=== PATIENT | male | born 2005 | race African-American/Black ===

== ENCOUNTER 2025-03-17 20:15 | Emergency (ER) | payer MEDICAID, SELFPAY ==
[2025-03-17 20:16] VITALS: BP 188/106; PULSE 90; RESP 18; TEMP 36.9; O2SAT 98; BMI 43.4
[2025-03-17 21:04] LABS: Mucous, Urine 0 SEEN /hpf (<or=2+)
--- OUTSIDE RECORDS SUMMARY | 2025-03-17 21:11 | XMS RPT_ITS | CCD ---
Author Organization [facility] Inform ion Partnership [facility] Care Team Providers Care Blood Or Blood Bank Technician Name Role Phone Marcio Ruiz MD Primary Care Provider Marcio Ruiz MD Unavailable [phone] Omar Tomlin DO Primary Care Provider [phone] OMAR TOMLIN Primary Care Unavailable ALISSON ROSS Referring Unavailable ALISSON ROSS Attending Unavailable Omar Tomlin DO Primary Care Provider [phone] Medications Current Medications Medication Drug Class(es) Dates Sig (Normalized) Sig (Original) [id number] 200 actuat albuterol 0.09 mg/actuat metered dose inhaler (1 source) beta2-Adrenergic Agonist Start: 03-07-2019 take 2 puff(s) by mouth every four hours as needed for wheezing albuterol (PROVENTIL HFA) INHALATION HFA inhaler (VENTOLIN,PROAIR,PRO VENTIL) 90mcg Inhale 2 Puffs by mouth every 4 hours as needed for Wheezing or Shortness of Breath. May substitute any equivalent albuterol HFA MDI 2 Inhaler 3 03/07/2019 Active benzonatate 100 mg oral capsule (1 source) Non-narcotic Antitussive Start: 08-25-2024 End: 09-01-2024 take 1 capsule by mouth three times daily as needed for cough benzonatate (TESSALON PERLE) 100 mg capsule Indications: Viral illness Take 1 capsule by mouth three times a day as needed for cough for up to 7 days. 21 capsule 08/25/2024 09/01/2024 Active benzoyl peroxide 0.05 mg/mg topical gel (1 source) Start: 04-27-2018 benzoyl peroxide 5 % gel Apply topically daily. Apply thin layer to affected area each evening 90 g 3 04/27/2018 Active Methylphenidate (2 sources) Central Nervous System Stimulant METHYLPHENIDATE HCL (CONCERTA ORAL) Take by mouth. Active METHYLPHENIDATE HCL (CONCERTA ORAL) Take by mouth. 0 Active Comment on above: Take by mouth. predniSONE 20 mg oral tablet (1 source) Start: 08-25-2024 End: 08-28-2024 take 1 tablet by mouth twice daily predniSONE (DELTASONE) 20 mg tablet Indications: Viral illness Take 1 tablet by mouth two times a day for 3 days. 6 tablet 08/25/2024 08/28/2024 Active selenium sulfide 25 mg/ml medicated shampoo (1 source) Start: 04-01-2018 apply 118 mL topically once daily selenium sulfide 2.5 % topical suspension Use daily for 1 week, leave on for at least 10 minutes before rinsing off. To treat tinea versicolor 118 mL 1 04/01/2018 Active Problems Active Problems Problem Classification Problem Date Documented Date Episodic/Chronic Asthma (1 source) Intermittent asthma; Translations: [Mild intermittent asthma, uncomplicated] Onset: 10-18-2012 07-04-2016 Chronic Disorders usually diagnosed in infancy, childhood, or adolescence (1 source) Attention deficit hyperactivity disorder, predominantly inattentive type; Translations: [Other specified behavioral and emotional disorders with onset usually occurring in childhood and adolescence] Onset: 10-18-2012 07-10-2017 Chronic Immunizations and screening for infectious disease (2 sources) Patient encounter status; Translations: [Encounter for immunization] 02-09-2023 Episodic Other nutritional; endocrine; and metabolic disorders (1 source) Childhood obesity; Translations: [Morbid (severe) obesity due to excess calories] Onset: 11-07-2016 10-24-2018 Chronic Other nutritional; endocrine; and metabolic disorders (1 source) Morbid obesity; Translations: [Morbid (severe) obesity due to excess calories] 02-09-2023 Chronic Other skin disorders (1 source) Keloid scar; Translations: [Hypertrophic scar] 02-09-2023 Episodic Viral infection (1 source) Viral disease; Translations: [Viral infection, unspecified] 08-25-2024 Episodic Past or Other Problems Problem Classification Problem Date Documented Da te Episodic/Chronic Attention-deficit, conduct, and disruptive behavior disorders (1 source) Disruptive behavior disorder; Translations: [Conduct disorder, unspecified] Onset: 04-07-2011 Resolved: 07-04-2016 07-04-2016 Chronic Blindness and vision defects (1 source) Amblyopia of left eye; Translations: [Unspecified amblyopia, left eye] Onset: 03-12-2019 03-12-2019 Episodic Fracture of lower limb (1 source) Closed fracture of tibial tuberosity; Translations: [Displaced fracture of right tibial tuberosity, initial encounter for closed fracture] Onset: 05-21-2017 Resolved: 04-27-2018 04-27-2018 Episodic Other circulatory disease (1 source) Elevated blood-pressure reading without diagnosis of hypertension; Translations: [Elevated blood-pressure reading, without diagnosis of hypertension] Onset: 04-27-2018 04-27-2018 Episodic Other gastrointestinal disorders (1 source) Encopresis ; Translations: [Full incontinence of feces] Onset: 05-03-2008 Resolved: 05-07-2017 05-07-2017 Episodic Other nutritional; endocrine; and metabolic disorders (1 source) Increased body mass index; Translations: [Other symptoms and signs concerning food and fluid intake] Onset: 10-24-2015 Resolved: 12-18-2016 12-18-2016 Episodic Other nutritional; endocrine; and metabolic disorders (7 sources) Childhood obesity; Translations: [Body mass index (BMI) pediatric, greater than or equal to 95th percentile for age] Onset: 05-31-2020 02-09-2023 Episodic Other skin disorders (1 source) Acne; Translations: [Acne, unspecified] Onset: 07-10-2017 07-10-2017 Episodic Results Test Name Value Interpretation Reference Range Facil ity MIRTAOVon 02-09-2023 CNOV Office Visit (PEDSBD ) RINA MENDOZA ([id number]) 3 M Date Time Provider Department 02/09/23 9:00 AM ALISSON ROSS PEDSBD During your visit today, we recorded the following information about you: Blood pressure Weight Height 134/83 135.4 kg 1.77 m Alissonjeremiah EvangelistaRAND alatorre 02/09/2023 8:06 PM Addendum 5 to Go!TM Healthy Kids Inside AND Out 5 Eat FIVE fruits and veggies a day 4 Give and get FOUR compliments a day 3 Consume THREE calcium products a day 2 Limit media time to TWO hours a day 1 Get at least ONE hour of exercise a day 0 Consume ZERO sugar-sweetened drinks Go! Be healthy, inside and out! www.[email or web address] g/5toGo Adolescent to Adult Transition Program [facility] cares about helping you and each of our adolescents and young adults make a smooth transition to adult care. If your current doctor is a report manager, we will work with you to decide the correct age for moving your care to a doctor or other provider who takes care of adults. We suggest that this move take place before age 22. Our office policy is to prepare you to move to a doctor or other provider who takes care of adults. This includes helping you find a doctor or other provider, sending medical records, and talking about any special needs with the new doctor or other provider. If your current doctor is in family medicine, [facility] will prepare you and your family for the transition to being an adult patient. You will be able to make your own healthcare decisions and will have an adult care team that meets your personal healthcare needs. At age 18, by law, we need your agreement to discuss personal health information with your family. We understand and respect that you may want to include your family in healthcare choices and will partner with you on how and when to include your family in decisions. We will make sure you know what changes to expect. We will also strive to make sure that all care team providers know your needs. We will help you find community resources and specialty care, if needed. Having your information before you come for the first time helps us be sure we do not miss any details. If joining our practice from outside [facility], we will help you request your medical record from past doctor(s) before your first visit. We will make every effort to work with your past providers to ensure a smooth transition and experience. We are always here for you. If you have any questions or concerns, please contact your primary care team or e-mail [email or web address] Got Transition ? is the federally funded national resource center on health care transition (HCT). Its aim is to improve transition from pediatric to adult health care through the use of evidence-driven strategies for health manager care, youth, young adults, and their families. www.gottransition.org https://gottransition. org/resource/?hct-fami ly-toolkit 5 to Go!TM Healthy Kids Inside AND Out 5 Eat FIVE fruits and veggies a day 4 Give and get FOUR compliments a day 3 Consume THREE calcium products a day 2 Limit media time to TWO hours a day 1 Get at least ONE hour of exercise a day 0 Consume ZERO sugar-sweetened drinks Go! Be healthy, inside and out! www.[email or web address].or g/5toGo Alisson Ross APRN.CNP 02/10/2023 1:05 PM Signed WELL VISIT PEDIATRIC 18+YRS OLD Rina is a 17 year old who presents today with his mother for well exam. SUBJECTIVE CONCERNS: Cramping in legs with football- drinks Over 1 gallon of water a day. Participates in football 5-6 hours a day. Discussed replacing electrolytes, magnesium with calcium supplement HISTORY ACTIVE PROBLEM LIST Body Mass Index Equal to Or Greater Than 95th Percentile for Age in Pediatric Patient - 05/31/2020 PAST MEDICAL HISTORY Diagnosis Date Attention deficit hyperactivity disorder PAST SURGICAL HISTORY Procedure Laterality Date CIRCUMCISION NONE ALLERGIES No Known Allergies Medications: METHYLPHENIDATE HCL (CONCERTA ORAL) Take by mouth. FAMILY HISTORY Problem Relation Age of Onset Hypertension Maternal Grandmother Diabetes Maternal Grandmother Social History Social History Narrative Not on file Smoking Exposure: Do you spend a significant amount of time with anyone who smokes? No School: Entering 12th grade.plans for after high school. Looking at colleges - will play football for college and undeclared what he will study at this time No academic or school related concerns No behavioral concerns Any concerns regarding peer interactions? No Physical Activity: more than 1 hour of physical activity per day football and conditioning, weight lifting Recreational Screen Time totaling less than 2 hours of screen time per day. Fainting, dizziness, significant shortness of breath or chest pain with sports or (more content not included)... Normal [facility] Vital Signs Date Time Vital Sign Value Performing Clinician Faci darci 08-25-2024 10:51-0500 Body temperature 99.3 [degF] Dutch Mckeon PA-C Work Phone: [facility] 08-25-2024 10:51-0500 Body weight 141.4 kg Dutch Clutter PA-C Work Phone: [facility] 08-25-2024 10:51-0500 Diastolic blood pressure 100 mm[Hg] Dutch Clutter PA-C Work Phone: [facility] 08-25-2024 10:51-0500 Heart rate 100 /min Dutch Clutter PA-C Work Phone: [facility] 08-25-2024 10:51-0500 Respiratory rate 16 /min Dutch Clutter PA-C Work Phone: [facility] 08-25-2024 10:51-0500 SaO2% (BldA) [Mass fraction] 98 % Dutch Clutter PA-C Work Phone: [facility] 08-25-2024 10:51-0500 Systolic blood pressure 145 mm[Hg] Dutch Clutter PA-C Work Phone: [facility] 02-09-2023 09:14-0400 Body height 177 cm Alissonjeremiah Ross PIPE CLEANING MACHINE OPERATOR.PIT SUPERVISOR Work Phone: [facility] 02-09-2023 09:14-0400 Body mass index (BMI) [Percentile] Per age and sex 99.77 % Alisson Bladen PIPE CLEANING MACHINE OPERATOR.PIT SUPERVISOR Work Phone: [facility] 02-09-2023 09:14-0400 Body weight 135.44 kg Alisson Bladen PIPE CLEANING MACHINE OPERATOR.PIT SUPERVISOR Work Phone: [facility] 02-09-2023 09:14-0400 Diastolic blood pressure 83 mm[Hg] Alisson Bladen PIPE CLEANING MACHINE OPERATOR.PIT SUPERVISOR Work Phone: [facility] 02-09-2023 09:14-0400 Systolic blood pressure 134 mm[Hg] Alisson Bladen PIPE CLEANING MACHINE OPERATOR.PIT SUPERVISOR Work Phone: [facility] Encounters Encounter Date Encounter Type Care Provider Facility Start: 08-25-2024 End: 08-25-2024 Office outpatient new 30 minutes Dutch Clutter PA-C Work Phone: [facility] Comment on above: Viral illness (Prima ry Dx); Blood pressure check Start: 08-25-2024 End: 08-25-2024 Patient encounter status Dutch Mike REDDY Work Phone: [facility] Start: 02-09-2023 End: 02-09-2023 [facility] Facility:[facility] Start: 02-09-2023 Encounter for genera l adult medical examination without abnormal findings ALISSON ROSS [facility] Start: 02-09-2023 End: 02-09-2023 Patient encounter procedure Alisson Ross APRN.CNP Work Phone: [facility] Comment on above: Encounter for genera l adult medical examination without abnormal findings (Primary Dx); Encounter for immunization; Keloid; BMI (body mass index), pediatric, greater than 99% for age; Special screening examination for viral disease; Morbid childhood obesity with BMI greater than 99th percentile for age (HCC) Start: 02-09-2023 End: 02-09-2023 Patient encounter status Alisson Ross APRN.CNP Work Phone: [facility] Work Phone: Start: 09-15-2021 Letter encounter Marcio Ruiz MD Work Phone: [facility] Procedures Date Procedure Procedure Detail Performing Clinician Start: 02-09-2023 MENINGOCOCCAL B VACC INE (BEXSERO) Alisson Ross APRN.CNP Work Phone: Start: 03-07-2019 Lipid 1996 panel - S good or Plasma Marcio Ruiz MD Work Phone: Plan of Treatment Date Care Activity Detail Author Start: 11-06-2026 Tetanus,Diptheria,Pe rtussi s Vaccine (7 - Td or Tdap) Tetanus,Diptheria,Pert ussis Vaccine (7 - Td or Tdap) [facility] Start: 11-06-2026 Urine microalbumin profile [facility] Start: 04-02-2024 Covid-19 Vaccine ( season) Covid-19 Vaccine ( season) [facility] Start: 04-02-2024 Influenza vaccination Influenza Vacc ine (#1) [facility] Start: 04-02-2023 Influenza vaccination INFLUENZA (#1) [facility] Start: 03-09-2023 Meningococcal B Vacc ine: Consider Based On Risk (2 of 2 - Risk Bexsero 2-dose series) Meningococcal B Vaccine: Consider Based On Risk (2 of 2 - Risk Bexsero 2-dose series) [facility] Start: 03-09-2023 MENINGOCOCCAL B: Con computer consultant based on risk (2 of 2 - Risk Bexsero 2-dose series) MENINGOCOCCAL B: Consider based on risk (2 of 2 - Risk Bexsero 2-dose series) [facility] Start: 02-09-2023 End: 04-11-2023 Alanine aminotransferase [Enzymatic activity/volume] in Serum or Plasma ALT/SGPT Lab Routine BMI (body mass index), pediatric, greater than 99% for age Morbid childhood obesity with BMI greater than 99th percentile for age (HCC) Expected: 02/09/2023, Expires: 04/11/2023 [facility] Work Phone: Comment on above: Expected: 02/09/2023 , Expires: 04/11/2023 Start: 02-09-2023 End: 04-11-2023 Aspartate aminotransferase [Enzymatic activity/volume] in Serum or Plasma AST/SGOT BLD Lab Routine BMI (body mass index), pediatric, greater than 99% for age Morbid childhood obesity with BMI greater than 99th percentile for age (HCC) Expected: 02/09/2023, Expires: 04/11/2023 [facility] Work Phone: Comment on above: Expected: 02/09/2023 , Expires: 04/11/2023 Start: 02-09-2023 End: 04-11-2023 Fasting glucose [Mass/volume] in Serum or Plasma GLUCOSE FASTING BLD Lab Routine BMI (body mass index), pediatric, greater than 99% for age Morbid childhood obesity with BMI greater than 99th percentile for age (HCC) Expected: 02/09/2023, Expires: 04/11/2023 [facility] Work Phone: Comment on above: Expected: 02/09/2023 , Expires: 04/11/2023 Start: 02-09-2023 End: 04-11-2023 Hepatitis C virus Ab [Presence] in Serum HEPATITIS C ANTIBODY IA WITH CONFIRMATION Lab Routine Special screening examination for viral disease Expected: 02/09/2023, Expires: 04/11/2023 [facility] Work Phone: Comment on above: Expected: 02/09/2023 , Expires: 04/11/2023 Start: 02-09-2023 End: 04-11-2023 Lipid 1996 panel - Serum or Plasma LIPID PANEL BASIC Lab Routine BMI (body mass index), pediatric, greater than 99% for age Morbid childhood obesity with BMI greater than 99th percentile for age (HCC) Expected: 02/09/2023, Expires: 04/11/2023 [facility] Work Phone: Comment on above: Expected: 02/09/2023 , Expires: 04/11/2023 Start: 08-02-2022 DEPRESSION ASSESSMENT DEPRESSION ASS [facility] Start: 2022 Anxiety Screening Anxiety Screening [facility] Start: 2022 Depression Screening Depression Scre [facility] Start: 2022 HEPATITIS C SCREENING HEPATITIS C [facility] Start: 2022 Hepatitis C screening Hepatitis C [facility] Start: 2022 HIV SCREENING HIV SCREENING [facility] Start: 2022 HIV screening HIV Screening [facility] Start: 05-31-2022 Diabetes Screening Diabetes Screenin g [facility] Start: 12-10-2021 COVID-19 VACCINE (4 - Pfizer series) COVID-19 VACCINE (4 - Pfizer series) [facility] Start: 05-28-2021 COVID-19 Vaccine (3 - Booster for Pfizer series) COVID-19 Vaccine (3 - Booster for Pfizer series) [facility] Start: 03-07-2021 Fasting lipid profile Lipid Screenin g [facility] Start: 03-07-2021 Liver function tests - general ALT/AST Screening [facility] Start: 03-02-2021 Influenza vaccination Influenza Vacc ine (#1) [facility] Start: 2020 Meningococcal B (Bexsero,OMV) Vaccine (Optional,16-23 years) (#1) Meningococcal B (Bexsero,OMV) Vaccine (Optional,16-23 years) (#1) [facility] Start: 2019 HIV screening HIV Test [facility] Start: 2019 Vision Test (15-17 yrs,once) Vision Test (15-17 yrs,once) [facility] Start: 04-27-2019 Well child visit, 13 years WEL L FUR FARMER (3-17 YRS,YEARLY) [facility] Start: 2018 PEDS TO ADULT TRANSI TION ANNUAL ASSESSMENT PEDS TO ADULT TRANSITION ANNUAL ASSESSMENT [facility] COVID & INFLUENZA A/ B & RSV PCR, ROUTINE COVID & INFLUENZA A/B & RSV PCR, ROUTINE Microbiology Routine Viral illness Ordered: 08/25/2024 [facility] Work Phone: Comment on above: Ordered: 08/25/2024 Immunizations Immunization Date Immunization Notes Care Provider Rao gibson 02-09-2023 meningococcal B vacc ine, recombinant, OMV, adjuvanted Alisson Cody ANTOINE.PIT SUPERVISOR Work Phone: [facility] 10-15-2021 COVID-19 original vaccine, age 12+ yr, monovalent (PFIZER-BIONTECH - RYAN TOP) Alisson Ross PIPE CLEANING MACHINE OPERATOR.[facility] Work Phone: [facility] 10-15-2021 influenza, injectabl e, quadrivalent, preservative free Alisson Cody PIPE CLEANING MACHINE OPERATOR.PIT SUPERVISOR Work Phone: [facility] 10-15-2021 influenza virus vacc ine, unspecified formulation Dutch Mckeon PA-C Work Phone: [facility] 12-05-2020 Pfizer SARS-COV-2 (COVID-19) vaccine, age 12+ yrs, mRNA, spike protein, LNP, preservative free, 30 mcg/0.3mL dose ([id number]) Marcio Ruiz MD Work Phone: [facility] 05-31-2020 influenza, injectabl e, quadrivalent, contains preservative Marcio Ruiz MD Work Phone: [facility] 05-31-2020 meningococcal polysaccharide (groups A, C, Y and W-135) diphtheria toxoid conjugate vaccine (MCV4P) Marcio Ruiz MD Work Phone: [facility] 05-31-2020 influenza virus vacc ine, unspecified formulation Marcio Ruiz MD Work Phone: [facility] 03-07-2019 hepatitis A vaccine, pediatric/adolescent dosage, 2 dose schedule Marcio Ruiz MD Work Phone: [facility] 04-27-2018 hepatitis A vaccine, pediatric/adolescent dosage, 2 dose schedule Marcio Ruiz MD Work Phone: [facility] 04-27-2018 Human Papillomavirus 9-valent vaccine Marcio Ruiz MD Work Phone: [facility] 04-27-2018 influenza, injectabl e, quadrivalent, preservative free Marcio Ruiz MD Work Phone: [facility] 04-27-2018 influenza, seasonal, injectable Alisson Bladen PIPE CLEANING MACHINE OPERATOR.PIT SUPERVISOR Work Phone: [facility] 05-07-2017 influenza, injectabl e, quadrivalent, preservative free Marcio Ruiz MD Work Phone: [facility] 05-07-2017 influenza, seasonal, injectable Alisson Bladen PIPE CLEANING MACHINE OPERATOR.PIT SUPERVISOR Work Phone: [facility] 11-06-2016 Human Papillomavirus 9-valent vaccine Marcio Ruiz MD Work Phone: [facility] 11-06-2016 meningococcal oligosaccharide (groups A, C, Y and W-135) diphtheria toxoid conjugate vaccine (MCV4O) Marcio Ruiz MD Work Phone: [facility] 11-06-2016 meningococcal polysaccharide (groups A, C, Y and W-135) diphtheria toxoid conjugate vaccine (MCV4P) Alisson Ross APRN.PIT SUPERVISOR Work Phone: [facility] 11-06-2016 tetanus toxoid, redu obed diphtheria toxoid, and acellular pertussis vaccine, adsorbed Marcio Ruiz MD Work Phone: [facility] 04-19-2013 influenza, injectabl e, quadrivalent, preservative free Marcio Ruiz MD Work Phone: [facility] 04-19-2012 influenza, injectabl e, quadrivalent, preservative free Marcio Ruiz MD Work Phone: [facility] 04-19-2012 influenza, seasonal, injectable Alisson Bladen PIPE CLEANING MACHINE OPERATOR.PIT SUPERVISOR Work Phone: [facility] 04-19-2012 influenza, seasonal, injectable, preservative free Alisson Cody PIPE CLEANING MACHINE OPERATOR.PIT SUPERVISOR Work Phone: [facility] 03-11-2009 diphtheria, tetanus toxoids and acellular pertussis vaccine Marcio Ruiz MD Work Phone: [facility] 03-11-2009 diphtheria, tetanus toxoids and acellular pertussis vaccine, 5 pertussis antigens Alisson Bladen PIPE CLEANING MACHINE OPERATOR.PIT SUPERVISOR Work Phone: [facility] 03-11-2009 measles, mumps and rubella virus vaccine Marcio Ruiz MD Work Phone: [facility] 03-11-2009 poliovirus vaccine, inactivated Marcio Ruiz MD Work Phone: [facility] 03-11-2009 varicella virus vaccine Oni Ruiz MD Work Phone: [facility] 10-16-2005 diphtheria, tetanus toxoids and acellular pertussis vaccine Marcio Ruiz MD Work Phone: [facility] 10-16-2005 diphtheria, tetanus toxoids and acellular pertussis vaccine, 5 pertussis antigens Alisson Bladen PIPE CLEANING MACHINE OPERATOR.PIT SUPERVISOR Work Phone: [facility] 10-16-2005 haemophilus influenz ae type b vaccine, HbOC conjugate Alisson Bladen PIPE CLEANING MACHINE OPERATOR.PIT SUPERVISOR Work Phone: [facility] 10-16-2005 haemophilus influenz ae type b vaccine, PRP-T conjugate Marcio Ruiz MD Work Phone: [facility] 10-16-2005 varicella virus vaccine Oni hew Joseph MD Work Phone: [facility] 07-21-2005 haemophilus influenz ae type b vaccine, HbOC conjugate Alisson Bladen PIPE CLEANING MACHINE OPERATOR.[facility] Work Phone: [facility] 07-21-2005 pneumococcal conjuga te vaccine, 7 valent Marcio Ruiz MD Work Phone: [facility] 06-23-2005 influenza virus vacc ine, whole virus Marcio Ruiz MD Work Phone: [facility] 06-23-2005 influenza, seasonal, injectable Alisson Bladen PIPE CLEANING MACHINE OPERATOR.[facility] Work Phone: [facility] 06-23-2005 measles, mumps and rubella virus vaccine Marcio Ruiz MD Work Phone: [facility] 06-23-2005 pneumococcal conjuga te vaccine, 7 valent Marcio Ruiz MD Work Phone: [facility] [facility] 02-13-2005 diphtheria, tetanus toxoids and acellular pertussis vaccine Marcio Ruiz MD Work Phone: [facility] 02-13-2005 diphtheria, tetanus toxoids and acellular pertussis vaccine, 5 pertussis antigens Alisson Cody PIPE CLEANING MACHINE OPERATOR.[facility] Work Phone: [facility] 02-13-2005 haemophilus influenz ae type b vaccine, HbOC conjugate Alisson Bladen PIPE CLEANING MACHINE OPERATOR.[facility] Work Phone: [facility] 02-13-2005 haemophilus influenz ae type b vaccine, PRP-T conjugate Marcio Ruiz MD Work Phone: [facility] 02-13-2005 pneumococcal conjuga te vaccine, 7 valent Marcio Ruiz MD Work Phone: [facility] 02-13-2005 poliovirus vaccine, inactivated Marcio Ruiz MD Work Phone: [facility] 2004 diphtheria, tetanus toxoids and acellular pertussis vaccine Marcio Ruiz MD Work Phone: [facility] 2004 diphtheria, tetanus toxoids and acellular pertussis vaccine, 5 pertussis antigens Alisson Bladen PIPE CLEANING MACHINE OPERATOR.PIT SUPERVISOR Work Phone: [facility] 2004 haemophilus influenz ae type b vaccine, HbOC conjugate Alisson Bladen PIPE CLEANING MACHINE OPERATOR.[facility] Work Phone: [facility] 2004 haemophilus influenz ae type b vaccine, PRP-T conjugate Marcio Ruiz MD Work Phone: [facility] 2004 hepatitis B vaccine, pediatric or pediatric/adolescent dosage Marcio Ruiz MD Work Phone: [facility] 2004 pneumococcal conjuga te vaccine, 7 valent Marcio Ruiz MD Work Phone: [facility] 2004 poliovirus vaccine, inactivated Marcio Ruiz MD Work Phone: [facility] 2004 diphtheria, tetanus toxoids and acellular pertussis vaccine Marcio Ruiz MD Work Phone: [facility] Work Phone: 2004 diphtheria, tetanus toxoids and acellular pertussis vaccine, 5 pertussis antigens Alisson Cody PIPE CLEANING MACHINE OPERATOR.[facility] Work Phone: [facility] 2004 haemophilus influenz ae type b vaccine, HbOC conjugate Alisson Cody PIPE CLEANING MACHINE OPERATOR.[facility] Work Phone: [facility] 2004 haemophilus influenz ae type b vaccine, PRP-T conjugate Marcio Ruiz MD Work Phone: [facility] 2004 hepatitis B vaccine, pediatric or pediatric/adolescent dosage Marcio Ruiz MD Work Phone: [facility] 2004 pneumococcal conjuga te vaccine, 7 valent Marcio Ruiz MD Work Phone: [facility] 2004 poliovirus vaccine, inactivated Marcio Ruiz MD Work Phone: [facility] 2004 hepatitis B vaccine, pediatric or pediatric/adolescent dosage Marcio Ruiz MD Work Phone: [facility] Payers Date Payer Category Payer Medicaid [facility] [id number] 2023-Present [phone] [address] [place] [address] Medicaid [id number] 2018 Unknown SP/UNINSURED [facility] F-PAY [facility] 2018-Present [id number] Social History Date Type Detail Facility [facility]: [facility] Start: 03-12-2019 Alcohol intake Not Asked [facility] Start: 03-12-2019 End: 02-09-2023 Alcohol intake [facility] Start: 11-06-2016 Tobacco Comment non smoking househol d [facility] Start: 2004 Sex Assigned At Not on file [facility] Start: 02-09-2023 Tobacco use and exposure Smoke less tobacco non-user [facility] Start: 02-09-2023 End: 08-25-2024 Alcohol intake Current non-drinker of alcohol (finding) [facility] Start: 02-09-2023 End: 08-25-2024 Tobacco use panel [facility] National Score (1-10 0), lower number is lower risk 36 [facility] History of Present illness Narrative 08-25-2024 Dutch Mckeon PA-C - 08/25/2024 11:03 AM EST Note Date & Type Note Facility 08-25-2024 History of Presen t illness Narrative This note was created using RemoteRealityriter. Subjective Rina Mendoza is a 19 year old male. Patient is a 27-year-old male who complains of congestion and cough that he has been experiencing for the past 2 days. Patient reports a low-grade fever and denies chills or myalgia. Patient is a student at the [employer] and was seen in the school clinic prior to arrival this morning. Patient's blood pressure is noted to be elevated and he was sent to this facility for evaluation. Patient's blood pressure upon arrival was noted to be 145/100. Patient has no history of hypertension but does have a family history of same. Patient denies chest pain, palpitations, tightness or pressure and reports no dyspnea or shortness of breath. Patient has no history of asthma or COPD and does not smoke. Patient does weigh 311 pounds, however he exhibits an extremely high level of physical fitness and plays football at the [employer]. Cough Review of Systems HENT: Positive for congestion. Respiratory: Positive for cough. All other systems reviewed and are negative. Objective BP 145/100 Pulse 100 Temp 37.4 C (99.3 F) (Left Tympanic) Resp 16 Wt (!) 141.4 kg (311 lb 11.7 oz) SpO2 98% Physical Exam Vitals and nursing note reviewed. Constitutional: Appearance: Normal appearance. He is normal weight. HENT: Head: Normocephalic and atraumatic. Right Ear: Tympanic membrane, ear canal and external ear normal. Left Ear: Tympanic membrane, ear canal and external ear normal. Nose: Nose normal. Mouth/Throat: Mouth: Mucous membranes are moist. Pharynx: Oropharynx is clear. Eyes: Extraocular Movements: Extraocular movements intact. Conjunctiva/sclera: Conjunctivae normal. Pupils: Pupils are equal, round, and reactive to light. Cardiovascular: Rate and Rhythm: Normal rate and regular rhythm. Pulses: Normal pulses. Heart sounds: Normal heart sounds. No murmur heard. No friction rub. No gallop. Pulmonary: Effort: Pulmonary effort is normal. Breath sounds: Normal breath sounds. Musculoskeletal: General: Normal range of motion. Cervical back: Normal range of motion and neck supple. Skin: General: Skin is warm and dry. Capillary Refill: Capillary refill takes less than 2 seconds. Neurological: General: No focal deficit present. Mental Status: He is alert and oriented to person, place, and time. Psychiatric: Mood and Affect: Mood normal. Behavior: Behavior normal. Thought Content: Thought content normal. Judgment: Judgment normal. Assessment and Plan Unremarkable physical exam findings as noted above. Patient appears to be in a high degree of physical health and conditioning. Influenza A/B/SARS-CoV-2/RSV PCR was ordered and the patient was advised that results will be available tomorrow. Patient was provided with prescriptions for prednisone 20 mg and Tessalon 100 mg. Patient was strongly encouraged to obtain a blood pressure cuff at the drugstore when he obtains his prescription medication. Patient was instructed to measure his blood pressure at varying times of the day over the next 2 weeks and record the readings obtained. Patient was advised that if he continues to note elevated blood pressures he is to schedule an appointment with his primary care physician for further evaluation and management. Patient verbalizes excellent understanding of all of the above instructions. CLINICAL IMPRESSION: Viral Illness; Elevated Blood Pressure Reading ASSESSMENT/PLAN: 1. Viral illness - ICD9: 079.99, ICD10: B34.9 (primary diagnosis) - COVID & INFLUENZA A/B & RSV PCR, ROUTINE - PREDNISONE 20 MG TABLET - BENZONATATE 100 MG CAPSULE 2. Blood pressure check - ICD9: V81.1, ICD10: Z01.30 Dutch Mckeon PA-C documented in this encounter [facility] Progress note 02-09-2023 Note Date & Type Note Facility 02-09-2023 Note HNO ID: [id number] Author: Alisson Ross APRN.PIT SUPERVISOR Service: ? Author Type: Nurse Practitioner Type: Progress Notes Filed: 02/10/2023 1:05 PM Note Text: WELL VISIT PEDIATRIC 18+YRS OLD Rina is a 17 year old who presents today with his mother for well exam. SUBJECTIVE CONCERNS: Cramping in legs with football- drinks Over 1 gallon of water a day. Participates in football 5-6 hours a day. Discussed replacing electrolytes, magnesium with calcium supplement HISTORY ACTIVE PROBLEM LIST Body Mass Index Equal to Or Greater Than 95th Percentile for Age in Pediatric Patient - 05/31/2020 PAST MEDICAL HISTORY Diagnosis Date Attention deficit hyperactivity disorder PAST SURGICAL HISTORY Procedure Laterality Date CIRCUMCISION NONE ALLERGIES No Known Allergies Medications: METHYLPHENIDATE HCL (CONCERTA ORAL) Take by mouth. FAMILY HISTORY Problem Relation Age of Onset Hypertension Maternal Grandmother Diabetes Maternal Grandmother Social History Social History Narrative Not on file Smoking Exposure: Do you spend a significant amount of time with anyone who smokes? No School: Entering 12th grade.plans for after high school. Looking at colleges - will play football for college and undeclared what he will study at this time No academic or school related concerns No behavioral concerns Any concerns regarding peer interactions? No Physical Activity: more than 1 hour of physical activity per day football and conditioning, weight lifting Recreational Screen Time totaling less than 2 hours of screen time per day. Fainting, dizziness, significant shortness of breath or chest pain with sports or exercise: No History of concussion in the last year: No Safety: Reviewed seat belts, bike helmets, smoke detectors, and driving Diet: -Diet is well balanced and appropriate for age -Fruits and veggies are eaten with most meals -Regularly eats meals with family Snacks- peanut butter jelly Fruits daily not vegetables Elimination: no concerns, normal size and consistency Dental: dental care current Brushes 2 x daily Sleep: -no sleep concerns -naps during the day after football Vision: No vision concerns Hearing: No hearing concerns Growth: No growth concerns Substance use: none Sexual History: Attraction: female Sexually Active: No Screening tools reviewed and discussed with patient/[id number] and Social Determinants of Health. Please see Patient Entered Data. SDOH: Food Insecurity: Not on file Financial Resource Strain: Not on file Transportation Needs: Not on file Housing Stability: Not on file Discussed SDOH results with patient/family. SDOH needs identified: no concerns identified OBJECTIVE Physical Exam: BP 134/83 Ht 177 cm (5' 9.69) Wt 135.4 kg (298 lb 9.6 oz) BMI 43.23 kg/m? Blood pressure %francisco javier are not available for patients who are 18 years or older. >99 %ile (Z= 2.84) based on CDC (Boys, 2-20 Years) BMI-for-age based on BMI available as of 02/09/2023. Last BMI: Wt: 131.1 kg (289 lb 2 oz) (>99 %, Z= 3.03)* BMI: 42.58 kg/(m2) Last 4 Encounter Wt Readings: Date: Wt: 10/15/2021 131.1 kg (289 lb 2 oz) (>99 %, Z= 3.03)* 05/19/2021 124.7 kg (275 lb) (>99 %, Z= 2.95)* 05/31/2020 116.6 kg (257 lb) (>99 %, Z= 2.94)* 05/11/2017 86.6 kg (191 lb) (>99 %, Z= 2.64)* Last 4 Encounter Ht Readings: Date: Ht: 10/15/2021 175.5 cm (5' 9.09) (49 %, Z= -0.02)* 05/19/2021 177.8 cm (5' 10) (64 %, Z= 0.35)* 05/31/2020 176.5 cm (5' 9.5) (66 %, Z= 0.41)* General: Well developed, No acute distress, Obese Head: normocephalic Eyes: conjunctivae/corneas clear Ears: normal external ear and canal, tympanic membranes with normal landmarks Nose: no erythema or rhinorrhea Oropharynx: moist mucous membranes, no erythema or exudate Neck: supple, no adenopathy Spine: Back symmetric, no curvature. Resp: lungs clear to auscultation Heart: RRR, normal S1 and S2. , No murmurs Chest: symmetric, no lesions Abdomen: Soft, nontender, nondistended, no palpable organomegaly or masses, normal bowel sounds Genitalia: Kev stage IV, no inguinal masses, no rashes or lesions, circumcised, testes descended bilaterally Extremities: Full ROM and no swelling, erythema or tenderness Neuro: No focal deficits or abnormal findings present Skin: no rashes ASSESSMENT AND PLAN Encounter Diagnosis ICD-10-CM 1. Encounter for general adult medical examination without abnormal findings Z00.00 2. Encounter for immunization Z23 MENINGOCOCCAL B VACCINE (BEXSERO) 3. Keloid L91.0 CONSULT TO DERMATOLOGY 4. BMI (body mass index), pediatric, greater than 99% for age Z68.54 AST/SGOT BLD ALT/SGPT GLUCOSE FASTING BLD LIPID PANEL BASIC 5. Special screening examination for viral disease Z11.59 HEPATITIS C ANTIBODY IA WITH CONFIRMATION 6. Morbid childhood obesity with BMI greater than 99th percentile for age (HCC) E66.01 AST/SG (more content not included)... [facility] History of Present illness Narrative 02-09-2023 Alisson Ross APRN.PIT SUPERVISOR - 02/09/2023 9:00 AM EDT Note Date & Type Note Facility 02-09-2023 History of Presen t illness Narrative WELL VISIT PEDIATRIC 18+YRS OLD Rina is a 17 year old who presents today with his mother for well exam. SUBJECTIVE CONCERNS: Cramping in legs with football- drinks Over 1 gallon of water a day. Participates in football 5-6 hours a day. Discussed replacing electrolytes, magnesium with calcium supplement HISTORY ACTIVE PROBLEM LIST Body Mass Index Equal to Or Greater Than 95th Percentile for Age in Pediatric Patient - 05/31/2020 PAST MEDICAL HISTORY Diagnosis Date Attention deficit hyperactivity disorder PAST SURGICAL HISTORY Procedure Laterality Date CIRCUMCISION NONE ALLERGIES No Known Allergies Medications: METHYLPHENIDATE HCL (CONCERTA ORAL) Take by mouth. FAMILY HISTORY Problem Relation Age of Onset Hypertension Maternal Grandmother Diabetes Maternal Grandmother Social History Social History Narrative Not on file Smoking Exposure: Do you spend a significant amount of time with anyone who smokes? No School: Entering 12th grade.plans for after high school. Looking at colleges - will play football for college and undeclared what he will study at this time No academic or school related concerns No behavioral concerns Any concerns regarding peer interactions? No Physical Activity: more than 1 hour of physical activity per day football and conditioning, weight lifting Recreational Screen Time totaling less than 2 hours of screen time per day. Fainting, dizziness, significant shortness of breath or chest pain with sports or exercise: No History of concussion in the last year: No Safety: Reviewed seat belts, bike helmets, smoke detectors, and driving Diet: -Diet is well balanced and appropriate for age -Fruits and veggies are eaten with most meals -Regularly eats meals with family Snacks- peanut butter jelly Fruits daily not vegetables Elimination: no concerns, normal size and consistency Dental: dental care current Brushes 2 x daily Sleep: -no sleep concerns -naps during the day after football Vision: No vision concerns Hearing: No hearing concerns Growth: No growth concerns Substance use: none Sexual History: Attraction: female Sexually Active: No Screening tools reviewed and discussed with patient/[id number] and Social Determinants of Health. Please see Patient Entered Data. SDOH: Food Insecurity: Not on file Financial Resource Strain: Not on file Transportation Needs: Not on file Housing Stability: Not on file Discussed SDOH results with patient/family. SDOH needs identified: no concerns identified OBJECTIVE Physical Exam: BP 134/83 Ht 177 cm (5' 9.69) Wt 135.4 kg (298 lb 9.6 oz) BMI 43.23 kg/m Blood pressure %francisco javier are not available for patients who are 18 years or older. >99 %ile (Z= 2.84) based on CDC (Boys, 2-20 Years) BMI-for-age based on BMI available as of 02/09/2023. Last BMI: Wt: 131.1 kg (289 lb 2 oz) (>99 %, Z= 3.03)* BMI: 42.58 kg/(m^2) Last 4 Encounter Wt Readings: Date: Wt: 10/15/2021 131.1 kg (289 lb 2 oz) (>99 %, Z= 3.03)* 05/19/2021 124.7 kg (275 lb) (>99 %, Z= 2.95)* 05/31/2020 116.6 kg (257 lb) (>99 %, Z= 2.94)* 05/11/2017 86.6 kg (191 lb) (>99 %, Z= 2.64)* Last 4 Encounter Ht Readings: Date: Ht: 10/15/2021 175.5 cm (5' 9.09) (49 %, Z= -0.02)* 05/19/2021 177.8 cm (5' 10) (64 %, Z= 0.35)* 05/31/2020 176.5 cm (5' 9.5) (66 %, Z= 0.41)* General: Well developed, No acute distress, Obese Head: normocephalic Eyes: conjunctivae/corneas clear Ears: normal external ear and canal, tympanic membranes with normal landmarks Nose: no erythema or rhinorrhea Oropharynx: moist mucous membranes, no erythema or exudate Neck: supple, no adenopathy Spine: Back symmetric, no curvature. Resp: lungs clear to auscultation Heart: RRR, normal S1 and S2. , No murmurs Chest: symmetric, no lesions Abdomen: Soft, nontender, nondistended, no palpable organomegaly or masses, normal bowel sounds Genitalia: Kev stage IV, no inguinal masses, no rashes or lesions, circumcised, testes descended bilaterally Extremities: Full ROM and no swelling, erythema or tenderness Neuro: No focal deficits or abnormal findings present Skin: no rashes ASSESSMENT & PLAN Encounter Diagnosis ICD-10-CM 1. Encounter for general adult medical examination without abnormal findings Z00.00 2. Encounter for immunization Z23 MENINGOCOCCAL B VACCINE (BEXSERO) 3. Keloid L91.0 CONSULT TO DERMATOLOGY 4. BMI (body mass index), pediatric, greater than 99% for age Z68.54 AST/SGOT BLD ALT/SGPT GLUCOSE FASTING BLD LIPID PANEL BASIC 5. Special screening examination for viral disease Z11.59 HEPATITIS C ANTIBODY IA WITH CONFIRMATION 6. Morbid childhood obesity with BMI greater than 99th percentile for age (HCC) E66.01 AST/SGOT BLD Z68.54 ALT/SGPT GLUCOSE FASTING BLD LIPID PANEL BASIC >99 %ile (Z= 2.84) based on CDC (Boys, 2-20 Years) BMI-for-age based on BMI available as of 02/09/2023. Rina is elevated range (BMI greater than 95th%): -Discussed how healthy eating, minimizing electronics and getting physical activity impact physical and emotional health -Avoid eating out and encouraged family meals at home -Lipid panel, AST, ALT and fasting glucose ordered based on Obesity Expert Committee Guidelines PHQ-9 screen score- 0 Depression screening tool completed and reviewed. Based on score and interview, patient is not at risk for depression. Screening tool discussed with patient, and I recommended no further intervention at this time. Rina is an 17 yr old male seen today for yearly physical. He is entering 12th grade. Plans to go to college for football and academics. Solid academic performance. Making good friend connections Plays football, conditioning and weight lifting for school. Eats a balanced diet. Discussed BMI and labs. Sleep hygiene education completed. Physical exam benign today sans large keloid from hx of imbedded ear ring rt earlobe. Referred to derm today . - Discussed diet and safety. - Dental care discussed. - Bright Futures handout given (See Patient Instructions). - Parent/guardian was counseled [id number] by myself (the billing provider) for the following immunizations and vaccine components, including side effects: Men B. Parent/guardian consents for immunization and understands risks and benefits. A VIS sheet on each immunization was given to the parent/guardian. Parent/guardian declined immunization for COVID-19 and was counseled regarding risk. - Healthcare transition statement discussed.. - Follow up in one year for routine physical. documented in this encounter [facility] Instructions 02-09-2023 Patient Instructions Note Date & Type Note Facility 02-09-2023 Instructions Alisson Ross APRN.CNP - 02/09/2023 7:37 AM EDT Images from the original note were not included. 5 to Go!TM Healthy Kids Inside & Out 5 Eat FIVE fruits and veggies a day 4 Give and get FOUR compliments a day 3 Consume THREE calcium products a day 2 Limit media time to TWO hours a day 1 Get at least ONE hour of exercise a day 0 Consume ZERO sugar-sweetened drinks Go! Be healthy, inside and out! [email or web address]/5toGo Adolescent to Adult Transition Program [facility] cares about helping you and each of our adolescents and young adults make a smooth transition to adult care. If your current doctor is a report manager, we will work with you to decide the correct age for moving your care to a doctor or other provider who takes care of adults. We suggest that this move take place before age 22. Our office policy is to prepare you to move to a doctor or other provider who takes care of adults. This includes helping you find a doctor or other provider, sending medical records, and talking about any special needs with the new doctor or other provider. If your current doctor is in family medicine, [facility] will prepare you and your family for the transition to being an adult patient. You will be able to make your own healthcare decisions and will have an adult care team that meets your personal healthcare needs. At age 18, by law, we need your agreement to discuss personal health information with your family. We understand and respect that you may want to include your family in healthcare choices and will partner with you on how and when to include your family in decisions. We will make sure you know what changes to expect. We will also strive to make sure that all care team providers know your needs. We will help you find community resources and specialty care, if needed. Having your information before you come for the first time helps us be sure we do not miss any details. If joining our practice from outside [facility], we will help you request your medical record from past doctor(s) before your first visit. We will make every effort to work with your past providers to ensure a smooth transition and experience. We are always here for you. If you have any questions or concerns, please contact your primary care team or e-mail [email or web address] [employer] is the federally funded national resource center on health care transition (HCT). Its aim is to improve transition from pediatric to adult health care through the use of evidence-driven strategies for health manager care, youth, young adults, and their families. www.gottransition.org https://gottransition.org/resource/?hct-fami ly-toolkit 5 to Go!TM Healthy Kids Inside & Out 5 Eat FIVE fruits and veggies a day 4 Give and get FOUR compliments a day 3 Consume THREE calcium products a day 2 Limit media time to TWO hours a day 1 Get at least ONE hour of exercise a day 0 Consume ZERO sugar-sweetened drinks Go! Be healthy, inside and out! [email or web address] documented in this encounter [facility] Evaluation note Note Date & Type Note Facility Evaluation note Diagnosis Encounter for general adult medical examination without abnormal findings- Primary Unspecified general medical examination Encounter for immunization Need for other specified prophylactic vaccination against single bacterial disease Keloid Keloid scar BMI (body mass index), pediatric, greater than 99% for age Body Mass Index, pediatric, greater than or equal to 95th percentile for age Special screening examination for viral disease Special screening examination for unspecified viral disease Morbid childhood obesity with BMI greater than 99th percentile for age (HCC) documented in this encounter [facility] Evaluation note Note Date & Type Note Facility Evaluation note Diagnosis Viral illness- Primary Unspecified viral infection, in conditions classified elsewhere and of unspecified site Blood pressure check Screening for hypertension documented in this encounter [facility] Reason for Referral Specialty Diagnoses / Procedures Referred By Jase chu Referred To Contact Dermatology Diagnoses Keloid Procedures CONSULT TO DERMATOLOGY Alisson Ross APRN.VIDHI [address] [place] [address] Referral ID Status Reason Start Date Expiration Date Visits Requested Visits Authorized [id number] Ref Not Required PCP Requested Referral 02/09/2023 02/09/2024 1 1 Summary Purpose Family History No Family History Records Found Advance Directives No Advanced Directives Records Found Additional Source Comments Care Teams (unrecognized sec tion and content) Blood Or Blood Bank Technician Relationship Specialty Start Date End Date Marcio Ruiz MD [address] [place] [id number] PCP - General Pediatrics 07/04/16 Marcio Ruiz MD [address] [place] [id number] PCP - Payer Claims Derived PCP 06/01/17 Blood Or Blood Bank Technician Relationship Specialty [place] [address] [place] [address] PCP - General Pediatrics 10/15/21 Blood Or Blood Bank Technician Relationship Specialty [place] [address] [place] [address] PCP - General Pediatrics 10/15/21 Source Comments (unrecognize d section and content) In the event this informatio n is protected by the Federal Confidentiality of Alcohol and Drug Abuse Patient Records regulations: The Federal rules restrict any use of the information to criminally investigate or prosecute any alcohol or drug abuse patient.[facility] the event this information is protected by the Federal Confidentiality of Alcohol and Drug Abuse Patient Records regulations: The Federal rules restrict any use of the information to criminally investigate or prosecute any alcohol or drug abuse patient.[facility] Reason for Visit (unrecogniz ed section and content) Reason Comments Well Child Specialty Diagnoses / Procedures Referred By Contac t Referred To Contact Diagnoses Physical Procedures EST PATIENT VISIT LEVEL 1 Alisson Ross APRN.PIT SUPERVISOR [address] [place] [address] [facility] Dept Referral ID Status Reason Start Date Expiration Date Visits Requested Visits Authorized [id number] Authorized Patient Cleared - Qualified 100% FAS 02/08/2023 05/09/2023 99 99 Reason Comments Cough Congestion. Vomiting , inability to keep food down & LLAMAS x 2-3 days; [facility] advised to have BP rechecked (unrecognized sect ion and content) No Status Records Found INFORMATION SOURCE (unrecogn ized section and content) DATE CREATED AUTHOR 02/16/2023 [facility] FOR RECORDS PERTAINING TO PATIENTS WHO ARE OR HAVE BEEN ENROLLED IN A CHEMICAL DEPENDENCY/SUBSTANCEABUSE PROGRAM, SOME INFORMATION MAY BE OMITTED. This clinical summary was aggregated from multiple sources. Caution should be exercised in using it in the provision of clinical care. This summary normalizes information from multiple sources, and as a consequence, information in this document may materially change the coding, format and clinical context of patient data. In addition, data may be omitted in some cases. CLINICAL DECISIONS SHOULD BE BASED ON THE PRIMARY CLINICAL RECORDS. [facility]. provides no warranty or guarantee of the accuracy or completeness of information in this document.
[2025-03-17 21:19] LABS: Color, Urine Yellow (Yellow); Glucose, Dipstick Normal (Normal); Ketone-Dipstick Negative (Negative); Leukocyte Esterase-Dipstick 500 /ul (Negative); Nitrite-Dipstick Negative (Negative); Occult Blood-Urine 10 /ul (Negative); Protein-Dipstick 30 mg/dl (Negative); Specific Gravity, Urine 1.025 (1.002-1.030); Urine Bilirubin Dipstick Negative (Negative)
[2025-03-17 21:22] LABS: Red Blood Cells-Urine 5-10 SEEN /hpf (0-5); Squamous Epithelial Cells - UA 0-5 SEEN /hpf (0-5)
--- NOTE | 2025-03-17 22:13 | EDS_ITS ---
HPI History of Present Illness Chief Complaint: Complaint Narrative Narrative: Patient is a 19-year-old male with no known significant past medical history who presents to the emergency department for concern for exposure to STI. Patient states that he is exposed to chlamydia back in the end of November early December and is just now finding out about this. He states that the individual that he slept with the recently told him this. He states that he does not have any symptoms at this point in time. In the triage note he complained of ingrown hair/bump on his scrotum which was there for 1 day back in the early summer and already popped and states that this has resolved since then. PFSH PFSH Medical History no medical history Home Medications ?Medication ?Instructions ?Recorded ?Last Taken ?Type cephalexin 500 mg capsule 500 mg PO BID 5 days #10 cap s 03/17/25 Unknown Rx Allergy/AdvReac Type Severity Reaction Status Date / Time No Known Allergies Allergy Verified 03/17/25 20:16 Surgical History no surgical history Social History Smoking Status: Never smoker ROS ROS ED ROS Narrative Constitutional: Denies any fevers, chills, headaches Abdomen: Denies abdominal pain nausea vomit diarrhea : Any painful urination, hematuria, polyuria, urethral discharge Neurological: Denies any numbness, weakness, tingling Musculoskeletal: Denies any back pain Skin: Denies any rashes or lesions EXAM Physical Exam Narrative Exam Narrative: General: Patient was lying in bed rest comfortably did not appear to be in acute distress Head: Matted, normocephalic Eyes: PERRL bilaterally, EOMI bilaterally, no conjunctival injection noted Neck: Soft, supple, trachea midline Cardiovascular: Regular rate Extremities: +5/5 strength noted in the bilateral upper and lower extremities Neurological: Patient following commands knew that he was at [facility] the year is 2024 Skin: Warm, dry, intact no rashes or lesions noted Const Vital Signs: 03/17/25 20:16 Temperature 98.5 F Temperature Source Oral Pulse Rate 90 Respiratory Rate 18 Blood Pressure 188/106 H Blood Pressure Mean 133 Pulse Ox 98 Oxygen Delivery Method Room Air MDM MDM MDM Narrative Medical decision making narrative: Patient is a 19-year-old male who presented to the emergency department for chief complaint of being exposed to chlamydia at the end of November early December. Once again the patient is completely asymptomatic and has no urethral discharge, painful urination. Will do further testing including gonorrhea chlamydia as we ll as a urinalysis. Patient urinalysis was reviewed which showed 5 and leukocyte esterase 25-50 white cells with 3+ bacteria he was given Keflex here in the emergency department for concern for urinary tract infection. Gonorrhea and Chlamydia testing still pending. At 10:24 PM I called on the lab they noted that that it will be hours before the test results return for gonorrhea and chlamydia. I discussed with the patient he would like to go home at this point time. Patient's prescription for Keflex will be sent to the pharmacy urine was sent for culture. He is advised to follow-up on the results and if this is positive he will need further antibiotics. He is encouraged return with worsening symptoms or concerns. All question concerns answered he was discharged home in stable condition. Lab Data Labs: Laboratory Results - last 24 hr 03/17/25 21:00 Urine Color Yellow Urine Clarity Sl. Cloudy Urine pH 6.0 Ur Specific [place] 1.025 Urine Protein 30 H Urine Glucose (UA) Normal Urine Ketones Negative Urine Occult Blood 10 H Urine Nitrite Negative Urine Bilirubin Negative Urine Urobilinogen 1 H Ur Leukocyte Esterase 500 H Urine RBC 5-10 SEEN Urine WBC 25-50 SEEN Ur Squamous Epith Cells 0-5 SEEN Urine Bacteria 3+ Urine Mucus 0 SEEN Discharge Plan Triage Chief Complaint: Complaint ED Provider: Errol Sesay Dx/Rx/DC Orders Clinical Impression: Urinary tract infection, Exposure to STD Prescriptions: New cephalexin 500 mg capsule 500 mg PO BID 5 Days Qty: 10 0RF Primary Care Provider: Marcos Greene,Out of Referrals: Marcos Greene,Out of [Primary Care Provider] - Jessenia Rodriguez Jori, WORKERS COMPENSATION CLAIMS SUPERVISOR-C [[facility]] - Activity Restrictions/Additional Instructions: Follow-up on the results of your gonorrhea and Chlamydia testing. Take antibiotics that were sent to your pharmacy as prescribed. Follow-up on urine culture as well. Return with worsening symptoms or any other concerns Print Language: Maori Disposition Disposition: Home, Self Care
[2025-03-17 22:41] VITALS: BP 159/100; PULSE 78; RESP 18; TEMP 36.3; O2SAT 96
--- NOTE | 2025-03-18 03:58 | ED.RN ---
Pt called back into ER. Updated on needing new script of atx and educated to follow up with PCP and to finish all atx. All questions asked.
== END 2025-03-17 23:00 | disposition home or self-care (01) ==
PROVIDERS: Emergency Provider Emergency Medicine; Visit Provider Emergency Medicine
DX: Z11.3 Encounter for screening for infections with a predominantly sexual mode of transmission (principal); Z20.2 Contact with and (suspected) exposure to infections with a predominantly sexual mode of transmission; N39.0 Urinary tract infection, site not specified
CPT/HCPCS: 81001; 87086; 87491; 87591; 99282

== ENCOUNTER 2025-04-22 20:22 | Emergency (ER) | payer MEDICAID, SELFPAY ==
[2025-04-22 20:23] VITALS: BP 149/94; PULSE 82; RESP 16; TEMP 37.1; O2SAT 100; BMI 45.8
[2025-04-22 20:47] LABS: Mucous, Urine 0 SEEN /hpf (<or=2+); Squamous Epithelial Cells - UA 0 SEEN /hpf (0-5)
--- OUTSIDE RECORDS SUMMARY | 2025-04-22 20:52 | XMS RPT_ITS | CCD ---
Author Organization [facility] Care Team Providers Care Laundry Supervisor Name Role Phone Marcio Ruiz MD Primary Care Provider Marcio Ruiz MD Unavailable Omar Tomlin DO Primary Care Provider [phone] OMAR TOMLIN Primary Care Unavailable ALISSON ROSS Referring Unavailable ALISSON ROSS Attending Unavailable Omar Tomlin DO Primary Care Provider [phone] [facility] Doctor, Out of Primary Care Provider Dr. Errol Villarreal DO Emergency Provider [facility] Doctor, Out of Primary Care Unavailable Errol Sesay Attending Unavailable Medications Current Medications Medication Drug Class(es) Dates Sig (Normalized) Sig (Original) [id number] 200 actuat albuterol 0.09 mg/actuat metered dose [...] each evening 90 g 3 04/27/2018 Active cephalexin 500 mg oral capsule (1 source) Cephalosporin Antibacterial Start: 03-17-2025 take 1 capsule by mouth twice daily Cephalexin 500 mg capsule Active 500 mg PO TWICE A DAY 10 5 0 March 17, 2025 12:00am Methylphenidate (2 sources) Central Nervous System Stimulant [...] Chronic Immunizations and screening for infectious disease (4 sources) Patient encounter status; Translations: [Encounter for immunization] Onset: 03-21-2025 02-09-2023 Episodic Other nutritional; endocrine; and metabolic disorders (1 source) Childhood obesity; Translations: [Morbid (severe) obesity due to excess calories] Onset: 11-07-2016 10-24-2018 Chronic Other nutritional; endocrine; and metabolic disorders (1 source) Morbid obesity; Translations: [Morbid (severe) obesity due to excess calories] 02-09-2023 Chronic Other skin disorders (1 source) Keloid scar; Translations: [Hypertrophic scar] 02-09-2023 Episodic Urinary tract infections (1 source) Urinary tract infectious disease; Translations: [Urinary tract infection, site not specified] 03-17-2025 Episodic Viral infection (1 source) Viral disease; [...] Results Test Name Value Interpretation Reference Range Facility [id number] 03-18-2025 [id number] RESULTS CALLED TO STEFANY 03/18/25 0029 Gerry Guido. REPORT READ BACK BY SAME. Chlamydia Trachomatis PCR POSITIVE for Chlamydia trachomatisA N. gonorrhoeae PCR Negative for N. gonorrhoeae CT Normal [facility] Comment on above: Performed By: #### L 400.0001, M8200.2203 #### [facility] [address] [place], [address] Urine Cultureon 03-18-2025 URC Culture exhibits no growth. Normal [facility] Comment on above: Performed By: #### M 100.2200 #### [facility] [address] [place], [address] Bilirubin Test strip Ql (U)O rdered By: Errol Sesay on 03-17-2025 Bilirubin Ql (U) Negative Negative [facility] Emergency Department Summary on 03-17-2025 Emergency Department Summary [facility] Medical Records Department [address] [place] [address] Emergency Department Summary 03/17/25 MR#: [id number] Acct: [id number] Name: JAYLEEN MENDOZA Rep #: [id number] : 2005 19 From: Errol Sesay DO PCP: OUT OF TOWN DOCTOR Status:REG ER Location: ED HPI History of Present Illness Chief Complaint: Complaint Narrative Narrative: Patient is a 19-year-old male with no known significant past medical history who presents to the emergency department for concern for exposure to STI. Patient states that he is exposed to chlamydia back in the end of November early December and is just now finding out about this. He states that the individual that he slept with the recently told him this. He states that he does not have any symptoms at this point in time. In the triage note he complained of ingrown hair/bump on his scrotum which was there for 1 day back in the early summer and already popped and states that this has resolved since then. PFS PFS Medical History no medical history Home Medications ???Medication ???Instructions ???Recorded ???Last Taken ???Type cephalexin 500 mg capsule 500 mg PO BID 5 days #10 caps 03/02 01/24 Unknown Rx Allergy/AdvReac Type Severity Reaction Status Date / Time No Known Allergies Allergy Verified 03/17/25 20:16 Surgical History no surgical history Social History Smoking Status: Never smoker ROS ROS ED ROS Narrative Constitutional: Denies any fevers, chills, headaches Abdomen: Denies abdominal pain nausea vomit diarrhea : Any painful urination, hematuria, polyuria, urethral discharge Neurological: Denies any numbness, weakness, tingling Musculoskeletal: Denies any back pain Skin: Denies any rashes or lesions EXAM Physical Exam Narrative Exam Narrative: General: Patient was lying in bed rest comfortably did not appear to be in acute distress Head: Matted, normocephalic Eyes: PERRL bilaterally, EOMI bilaterally, no conjunctival injection noted Neck: Soft, supple, trachea midline Cardiovascular: Regular rate Extremities: +5/5 strength noted in the bilateral upper and lower extremities Neurological: Patient following commands knew that he was at [facility] the year is 2024 Skin: Warm, dry, intact no rashes or lesions noted Const Vital Signs: 03/17/25 20:16 Temperature 98.5 F Temperature Source Oral Pulse Rate 90 Respiratory Rate 18 Blood Pressure 188/106 H Blood Pressure Mean 133 Pulse Ox 98 Oxygen Delivery Method Room Air MDM MDM MDM Narrative Medical decision making narrative: Patient is a 19-year-old male who presented to the emergency department for chief complaint of being exposed to chlamydia at the end of November early December. Once again the patient is completely asymptomatic and has no urethral discharge, painful urination. Will do further testing including gonorrhea chlamydia as well as a urinalysis. Patient urinalysis was reviewed which showed 5 and leukocyte esterase 25-50 white cells with 3+ bacteria he was given Keflex here in the emergency department for concern for urinary tract infection. Gonorrhea and Chlamydia testing still pending. At 10:24 PM I called on the lab they noted that that it will be hours before the test results return for gonorrhea and chlamydia. I discussed with the patient he would like to go home at this point time. Patient's prescription for Keflex will be sent to the pharmacy urine was sent for culture. He is advised to follow-up on the results and if this is positive he will need further antibiotics. He is encouraged return with worsening symptoms or concerns. All question concerns answered he was discharged home in stable condition. Lab Data Labs: Laboratory Results - last 24 hr 03/17/25 21:00 Urine Color Yellow Urine Clarity Sl. Cloudy Urine pH 6.[address] [place] 1.025 Urine Protein 30 H Urine Glucose (UA) Normal Urine Ketones Negative Urine Occult Blood 10 H Urine Nitrite Negative Urine Bilirubin Negative Urine Urobilinogen 1 H Ur Leukocyte Esterase 500 H Urine RBC 5-10 SEEN Urine WBC 25-50 SEEN Ur Squamous Epith Cells 0-5 SEEN Urine Bacteria 3+ Urine Mucus 0 SEEN Discharge Plan Triage Chief Complaint: Complaint ED Provider: Errol Sesay Dx/Rx/DC Orders Clinical Impression: Urinary tract infection, Exposure to STD Prescriptions: New cephalexin 500 mg capsule 500 mg PO BID 5 Days Qty: 10 0RF Primary Care Provider: [facility] Doctor,Out of Referrals: [facility] Doctor,Out of [Primary Care Provider] - Jessenia Rodriguez Jori, AGING DEPARTMENT SUPERVISOR-C [[facility]] - Activity Restrictions/Addit ional Instructions: Follow-up on the results (more content not included)... Normal [facility] Ketones Test strip Ql (U)Ord ered By: Errol Sesay on 03-17-2025 Ketones Ql (U) Negative Negative [facility] Microscopic analysis of urin e for red blood cells (RBC)Ordered By: Errol Sesay on 03-17-2025 Microscopic analysis of urine for red blood cells (RBC) 5-10 SEEN /hpf 0-5 [facility] Mucus LM Ql (Urine sed)Order ed By: Errol Sesay on 03-17-2025 Mucus Ql (Urine sed) 0 SEEN /hpf [facility] Nitrite Test strip Ql (U)Ord ered By: Errol Sesay on 03-17-2025 Nitrite Ql (U) Negative Negative [facility] Protein Test strip Ql (U)Ord ered By: Errol Sesay on 03-17-2025 Protein Ql (U) 30 mg/dl High Negative [facility] Squamous epithelial cells de tection in urine sediment by light microscopyOrdered By: Errol Sesay on 03-17-2025 Epithelial cells.squamous LM Ql (Urine sed) 0-5 SEEN /hpf 0-5 [facility] Urinalysis, Completeon 03-17 BACTERIA 3+ /hpf Normal None Seen [facility] Comment on above: Order Comment: CLEAN CATCH Performed By: #### L 400.0001, M8200.2203 #### [facility] [address] [place], [address] EPI,SQUAMOUS 0-5 SEEN Normal 0-5 [facility] Comment on above: Order Comment: CLEAN CATCH Performed By: #### L 400.0001, M8200.2203 #### [facility] [address] [place], [address] RBC 5-10 SEEN Normal 0-5 [facility] Comment on above: Order Comment: CLEAN CATCH Performed By: #### L 400.0001, M8200.2203 #### [facility] [address] [place], [address] WBC 25-50 SEEN Normal 0-5 [facility] Comment on above: Order Comment: CLEAN CATCH Performed By: #### L 400.0001, M8200.2203 #### [facility] [address] [place], [address] Mucus Ql (Urine sed) 0 SEEN Normal [facility] Comment on above: Order Comment: CLEAN CATCH Performed By: #### L 400.0001, [id number] #### [facility] [address] [place], [address] Urine clarityOrdered By: Ranjeet Sesay on 03-17-2025 Clarity (U) Sl. Cloudy Clear [facility] Urine color determinationOrd ered By: Errol Sesay on 03-17-2025 Color (U) Yellow Yellow [facility] Urine glucose detectionOrder ed By: Errol Sesay on 03-17-2025 Glucose Ql (U) Normal mg/dl Normal [facility] Urine leukocyte esterase det ection by dipstickOrdered By: Errol Sesay on 03-17-2025 Leukocyte esterase Test strip Ql (U) 500 /ul High Negative [facility] Urine pHOrdered By: Errol henson on 08-16-2025 pH (U) 6.0 [pH] 5.0 - 8.0 [facility] Urine sediment bacteria coun t by microscopy (number/high power field)Ordered By: Errol Sesay on 03-17-2025 Bacteria LM.HPF (Urine sed) [#/Area] 3 /[HPF] None Seen [facility] Urine specific gravity measu rementOrdered By: Errol Sesay on 03-17-2025 Specific gravity (U) [Rel density] 1.025 1.002-1.030 [facility] Urine urobilinogen measureme ntOrdered By: Errol Sesay on 03-17-2025 Urobilinogen Ql (U) 1 mg/dl High Normal [facility] White blood cell countOrdere d By: Errol Sesay on 03-17-2025 White blood cell count 25-50 SEEN /hpf 0-5 [facility] CNOVon 02-09-2023 CNOV Office Visit (PEDSBD) -------- RINA MENDOZA ([id number]) 3 M Date Time Provider Department 02/09/23 9:00 AM ALISSON ROSSSNATALIE During your visit today, we recorded the following information about you: Blood pressure Weight Height 134/83 135.4 kg 1.77 m Alisson Ross APRN.CNP 02/09/2023 8:06 PM Addendum 5 to Go!TM [...] drinks Go! Be healthy, inside and out! www.[facility] c.org/5toGo Adolescent to Adult Transition Program [facility] cares about helping you and each of our adolescents and young adults make a smooth transition to adult care. If your current doctor is a swager operator, we will work with you to decide [...] your current doctor is in family medicine, [facility] will prepare you and your family [...] details. If joining our practice from outside [facility], we will help you request your medical record from past doctor(s) before your first visit. We will make every effort to work with your past providers to ensure a smooth transition and experience. We are always here for you. If you have any questions or concerns, please contact your primary care team or e-mail [email or web address] Got Transition ? is the federally funded national resource center on health care transition (HCT). Its aim is to improve transition from pediatric to adult health care through the use of evidence-driven strategies for health acute care physical therapist, youth, young adults, and their families. www.gottransition. org https://gottransit ion.org/resource/? ztm-asdyuw-viuhdsf 5 to Go!TM Healthy Kids Inside AND Out 5 Eat FIVE fruits and veggies a day 4 Give and get FOUR compliments a day 3 Consume THREE calcium products a day 2 Limit media time to TWO hours a day 1 Get at least ONE hour of exercise a day 0 Consume ZERO sugar-sweetened drinks Go! Be healthy, inside and out! www.[facility].org/5toGo Alisson Ross APRN.CNP 02/10/2023 1:05 PM Signed [...] sports or (more content not included)... Normal [facility] Vital Signs Date Time Vital Sign Value Performing Clinician Sang bejarano 03-17-2025 22:41-0400 Body temperature 97.4 [degF] Out [facility] 03-17-2025 22:41-0400 Diastolic blood pressure 100 mm[Hg] Out [facility] 03-17-2025 22:41-0400 Heart rate 78 /min Out [facility] 03-17-2025 22:41-0400 Respiratory rate 18 /min Out [facility] 03-17-2025 22:41-0400 SaO2% (BldA) [Mass fraction] 96 % Out [facility] 03-17-2025 22:41-0400 Systolic blood pressure 159 mm[Hg] Out [facility] 03-17-2025 20:16-0400 Body height 180.[address] [facility] 03-17-2025 20:16-0400 Body mass index (BMI) [Ratio] 43.4 kg/m2 [facility] 03-17-2025 20:16-0400 Body weight 141.[address] [facility] 08-25-2024 10:51-0500 Body temperature 99.3 [degF] Dutch Clutter PA-C Work Phone: [facility] 08-25-2024 10:51-0500 Body weight 141.4 kg Dutch Clutter PA-C Work Phone: [facility] 08-25-2024 10:51-0500 Diastolic blood pressure 100 mm[Hg] Dutch Clutter PA-C Work Phone: [facility] 08-25-2024 10:51-0500 Heart rate 100 /min Dutch Clutter PA-C Work Phone: [facility] 08-25-2024 10:51-0500 Respiratory rate 16 /min Dutch Clutter PA-C Work Phone: [facility] 08-25-2024 10:51-0500 SaO2% (BldA) [Mass fraction] 98 % Dutch Clutter PA-C Work Phone: [facility] 08-25-2024 10:51-0500 Systolic blood pressure 145 mm[Hg] Dutch Clutter PA-C Work Phone: [facility] 02-09-2023 09:14-0400 Body height 177 cm Alisson Ross APRN.HOGSHEAD STOCK CLERK Work Phone: [facility] 02-09-2023 09:14-0400 Body mass index (BMI) [Percentile] Per age and sex 99.77 % Alisson Ross APRN.HOGSHEAD STOCK CLERK Work Phone: [facility] 02-09-2023 09:14-0400 Body weight 135.44 kg Alisson Ross APRN.HOGSHEAD STOCK CLERK Work Phone: [facility] 07-11-2023 09:14-0400 Diastolic blood pressure 83 mm[Hg] Alisson Ross APRN.CNP Work Phone: [facility] 02-09-2023 09:14-0400 Systolic blood pressure 134 mm[Hg] Alisson Ross APRN.HOGSHEAD STOCK CLERK Work Phone: [facility] Encounters Encounter Date Encounter Type Care Provider Facility Start: 03-17-2025 End: 03-17-2025 Emergency department patient visit [facility] Doctor -Emergency Department Work Phone: Start: 08-25-2024 End: 08-25-2024 Office outpatient new 30 minutes Dutch Mike PARKER-Jori Work Phone: [facility] Comment on above: Viral illness (Prima ry Dx); Blood pressure check Start: 08-25-2024 End: 08-25-2024 Patient encounter status Dutch Mike PARKER-C Work Phone: [facility] Start: 02-09-2023 End: 02-09-2023 ambulatory [facility] Facility:[facility] Start: 02-09-2023 Encounter for genera l adult medical examination without abnormal findings ALISSON ROSS [facility] Start: 02-09-2023 End: 02-09-2023 Patient encounter procedure Alisson Ross APRN.CNP Work Phone: [facility] Comment on above: Encounter for genera l adult medical examination without abnormal findings (Primary Dx); Encounter for immunization; Keloid; BMI (body mass index), pediatric, greater than 99% for age; Special screening examination for viral disease; Morbid childhood obesity with BMI greater than 99th percentile for age ([facility]) Start: 02-09-2023 End: 02-09-2023 Patient encounter status Alisson Ross APRN.HOGSHEAD STOCK CLERK Work Phone: [facility] Work Phone: Start: 09-15-2021 Letter encounter Marcio Ruiz MD Work Phone: [facility] Procedures Date Procedure Procedure Detail Performing Clinician Start: 03-17-2025 Urnls dip stick/tabl et reagent auto microscopy [facility] Doctor Start: 02-09-2023 MENINGOCOCCAL B VACC INE (BEXSERO) Alisson Ross APRN.HOGSHEAD STOCK CLERK Work Phone: Start: 03-07-2019 Lipid 1996 panel - S good or Plasma Marcio Ruiz MD Work Phone: Plan of Treatment Date Care Activity Detail Author Start: 11-06-2026 Tetanus,Diptheria,Pe rtussi s Vaccine (7 - Td or Tdap) Tetanus,Diptheria,Pert ussis Vaccine (7 - Td or Tdap) [facility] Start: 11-06-2026 Urine microalbumin profile [facility] Start: 03-17-2025 Polymerase chain renaldo ction analysis [facility] Start: 03-17-2025 End: 03-17-2025 [facility] Start: 03-17-2025 Bacteria identified in Urine by Culture Urine Culture [facility] Start: 03-17-2025 Chlamydia/Neisseria (PCR) Chla mydia/Neisseria (PCR) 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 based on risk (2 of 2 - Risk Bexsero 2-dose series) MENINGOCOCCAL B: Consider based on risk (2 of 2 - Risk Bexsero 2-dose series) [facility] Start: 02-09-2023 End: 04-11-2023 Alanine aminotransferase [Enzymatic activity/volume] in Serum or Plasma ALT/SGPT Lab Routine BMI (body mass index), pediatric, greater than 99% for age Morbid childhood obesity with BMI greater than 99th percentile for age (HCC) Expected: 02/09/2023, Expires: 04/11/2023 [facility] Work Phone: Comment on above: Expected: 02/09/2023 , Expires: 04/11/2023 Start: 02-09-2023 End: 04-11-2023 Aspartate aminotransferase [Enzymatic activity/volume] in Serum or Plasma AST/SGOT BLD Lab Routine BMI (body mass index), pediatric, greater than 99% for age Morbid childhood obesity with BMI greater than 99th percentile for age (HCC) Expected: 02/09/2023, Expires: 04/11/2023 [facility] Work Phone: Comment on above: Expected: 02/09/2023 , Expires: 04/11/2023 Start: 02-09-2023 End: 04-11-2023 Fasting glucose [Mass/volume] in Serum or Plasma GLUCOSE FASTING BLD Lab Routine BMI (body mass index), pediatric, greater than 99% for age Morbid childhood obesity with BMI greater than 99th percentile for age (HCC) Expected: 02/09/2023, Expires: 04/11/2023 [facility] Work Phone: Comment on above: Expected: 02/09/2023 , Expires: 04/11/2023 Start: 02-09-2023 End: 04-11-2023 Hepatitis C virus Ab [Presence] in Serum HEPATITIS C ANTIBODY IA WITH CONFIRMATION Lab Routine Special screening examination for viral disease Expected: 02/09/2023, Expires: 04/11/2023 [facility] Work Phone: Comment on above: Expected: 02/09/2023 , Expires: 04/11/2023 Start: 02-09-2023 End: 04-11-2023 Lipid 1996 panel - Serum or Plasma LIPID PANEL BASIC Lab Routine BMI (body mass index), pediatric, greater than 99% for age Morbid childhood obesity with BMI greater than 99th percentile for age (HCC) Expected: 02/09/2023, Expires: 04/11/2023 [facility] Work Phone: Comment on above: Expected: 02/09/2023 , Expires: 04/11/2023 Start: 08-02-2022 DEPRESSION ASSESSMENT DEPRESSION ASS ESSMENT [facility] Start: 2022 Anxiety Screening Anxiety Screening [facility] Start: 2022 Depression Screening Depression Latrice banks [facility] Start: 2022 HEPATITIS C SCREENING HEPATITIS C [facility] Start: 2022 Hepatitis C screening Hepatitis C [facility] Start: 2022 HIV SCREENING HIV SCREENING [facility] Start: 2022 HIV screening HIV Screening [facility] Start: 05-31-2022 Diabetes Screening [facility] Screenin [facility] Start: 12-10-2021 COVID-19 VACCINE (4 - Pfizer series) COVID-19 VACCINE (4 - Pfizer series) [facility] Start: 05-28-2021 COVID-19 Vaccine (3 - Booster for Pfizer series) COVID-19 Vaccine (3 - Booster for Pfizer series) [facility] Start: 03-07-2021 Fasting lipid profile Lipid Screenin g [facility] Start: 03-07-2021 Liver function tests - general ALT/AST Screening [facility] Start: 03-02-2021 Influenza vaccination Influenza Vacc ine (#1) [facility] Start: 2020 Meningococcal B (Bexsero,OMV) Vaccine (Optional,16-23 years) (#1) Meningococcal B (Bexsero,OMV) Vaccine (Optional,16-23 years) (#1) [facility] Start: 2019 HIV screening HIV Test [facility] Start: 2019 Vision Test (15-17 yrs,once) Vision Test (15-17 yrs,once) [facility] Start: 04-27-2019 Well child visit, 14 years 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 Immunizations Immunization Date Immunization Notes Care Provider Rao gibson 02-09-2023 meningococcal B vacc ine, recombinant, OMV, adjuvanted Alisson Cody ASPHALT WORKER.HOGSHEAD STOCK CLERK Work Phone: [facility] 10-15-2021 COVID-19 original vaccine, age 12+ yr, monovalent ([employer] - [employer]YAN [employer]) Alisson Ross APRN.HOGSHEAD STOCK CLERK Work Phone: [facility] 10-15-2021 influenza, injectabl e, quadrivalent, preservative free Alisson Ross APRN.HOGSHEAD STOCK CLERK Work Phone: [facility] 10-15-2021 influenza virus vacc ine, unspecified formulation Dutch Mckeon BARRY Work Phone: [facility] 12-05-2020 [employer] SARS-COV-2 (COVID-19) vaccine, age 12+ yrs, mRNA, spike protein, LNP, preservative free, 30 mcg/0.3mL dose (SPP=795) Marcio Ruiz MD Work Phone: [facility] 05-31-2020 influenza, injectabl e, quadrivalent, contains preservative Marcio Ruiz MD Work Phone: [facility] 05-31-2020 meningococcal polysaccharide (groups A, C, Y and W-135) diphtheria toxoid conjugate vaccine (MCV4P) Marcio Ruiz MD Work Phone: [facility] 05-31-2020 influenza virus vacc ine, unspecified formulation Marcio Ruiz MD Work Phone: [facility] 03-07-2019 hepatitis A vaccine, pediatric/adolescent dosage, 2 dose schedule Marcio Ruiz MD Work Phone: [facility] 04-27-2018 hepatitis A vaccine, pediatric/adolescent dosage, 2 dose schedule Marcio Ruiz MD Work Phone: [facility] 04-27-2018 Human Papillomavirus 9-valent vaccine Marcio Ruiz MD Work Phone: [facility] 04-27-2018 influenza, injectabl e, quadrivalent, preservative free Marcio Ruiz MD Work Phone: [facility] 04-27-2018 influenza, seasonal, injectable Alisson Cody ASPHALT WORKER.HOGSHEAD STOCK CLERK Work Phone: [facility] 05-07-2017 influenza, injectabl e, quadrivalent, preservative free Marcio Ruiz MD Work Phone: [facility] 05-07-2017 influenza, seasonal, injectable Alisson [place] ASPHALT WORKER.HOGSHEAD STOCK CLERK Work Phone: [facility] 11-06-2016 Human Papillomavirus 9-valent vaccine Marcio Ruiz MD Work Phone: [facility] 11-06-2016 meningococcal oligosaccharide (groups A, C, Y and W-135) diphtheria toxoid conjugate vaccine (MCV4O) Marcio Ruiz MD Work Phone: [facility] 11-06-2016 meningococcal polysaccharide (groups A, C, Y and W-135) diphtheria toxoid conjugate vaccine (MCV4P) Alisson Cody BURTN.HOGSHEAD STOCK CLERK Work Phone: [facility] 11-06-2016 tetanus toxoid, redu obed diphtheria toxoid, and acellular pertussis vaccine, adsorbed Marcio Ruiz MD Work Phone: [facility] 04-19-2013 influenza, injectabl e, quadrivalent, preservative free Marcio Ruiz MD Work Phone: [facility] 04-19-2012 influenza, injectabl e, quadrivalent, preservative free Marcio Ruiz MD Work Phone: [facility] 04-19-2012 influenza, seasonal, injectable Alisson Cody ASPHALT WORKER.HOGSHEAD STOCK CLERK Work Phone: [facility] 04-19-2012 influenza, seasonal, injectable, preservative free Alisson [place] ASPHALT WORKER.HOGSHEAD STOCK CLERK Work Phone: [facility] 03-11-2009 diphtheria, tetanus toxoids and acellular pertussis vaccine Marcio Ruiz MD Work Phone: [facility] 03-11-2009 diphtheria, tetanus toxoids and acellular pertussis vaccine, 5 pertussis antigens Alisson Cody ASPHALT WORKER.HOGSHEAD STOCK CLERK Work Phone: [facility] 03-11-2009 measles, mumps and rubella virus vaccine Marcio Ruiz MD Work Phone: [facility] 03-11-2009 poliovirus vaccine, inactivated Marcio Ruiz MD Work Phone: [facility] 03-11-2009 varicella virus vaccine Oni Ruiz MD Work Phone: [facility] 10-16-2005 diphtheria, tetanus toxoids and acellular pertussis vaccine Marcio Ruiz MD Work Phone: [facility] 10-16-2005 diphtheria, tetanus toxoids and acellular pertussis vaccine, 5 pertussis antigens Alisson Cody ASPHALT WORKER.[facility] Work Phone: [facility] 10-16-2005 haemophilus influenz ae type b vaccine, HbOC conjugate Alisson Cody ASPHALT WORKER.HOGSHEAD STOCK CLERK Work Phone: [facility] 10-16-2005 haemophilus influenz ae type b vaccine, PRP-T conjugate Marcio Ruiz MD Work Phone: [facility] 10-16-2005 varicella virus vaccine Oni Ruiz MD Work Phone: [facility] 07-21-2005 haemophilus influenz ae type b vaccine, HbOC conjugate Alisson Cody ASPHALT WORKER.HOGSHEAD STOCK CLERK Work Phone: [facility] 07-21-2005 pneumococcal conjuga te vaccine, 7 valent Marcio Ruiz MD Work Phone: [facility] 06-23-2005 influenza virus vacc ine, whole virus Marcio Ruiz MD Work Phone: [facility] 06-23-2005 influenza, seasonal, injectable Alisson [place] ASPHALT WORKER.HOGSHEAD STOCK CLERK Work Phone: [facility] 06-23-2005 measles, mumps and rubella virus vaccine Marcio Ruiz MD Work Phone: [facility] 06-23-2005 pneumococcal conjuga te vaccine, 7 valent Marcio Ruiz MD Work Phone: [facility] 02-13-2005 diphtheria, tetanus toxoids and acellular pertussis vaccine Marcio Ruiz MD Work Phone: [facility] 02-13-2005 diphtheria, tetanus toxoids and acellular pertussis vaccine, 5 pertussis antigens Alisson Cody ASPHALT WORKER.[facility] Work Phone: [facility] 02-13-2005 haemophilus influenz ae type b vaccine, HbOC conjugate Alisson Cody ASPHALT WORKER.HOGSHEAD STOCK CLERK Work Phone: [facility] 02-13-2005 haemophilus influenz ae type b vaccine, PRP-T conjugate Marcio Ruiz MD Work Phone: [facility] 02-13-2005 pneumococcal conjuga te vaccine, 7 valent Marcio Ruiz MD Work Phone: [facility] 02-13-2005 poliovirus vaccine, inactivated Marcio Ruiz MD Work Phone: [facility] 2004 diphtheria, tetanus toxoids and acellular pertussis vaccine Marcio Ruiz MD Work Phone: [facility] 2004 diphtheria, tetanus toxoids and acellular pertussis vaccine, 5 pertussis antigens Alisson [place] ASPHALT WORKER.[facility] Work Phone: [facility] 2004 haemophilus influenz ae type b vaccine, HbOC conjugate Alisson [place] ASPHALT WORKER.[facility] Work Phone: [facility] 2004 haemophilus influenz ae type b vaccine, PRP-T conjugate Marcio Ruiz MD Work Phone: [facility] 2004 hepatitis B vaccine, pediatric or pediatric/adolescent dosage Marcio Ruiz MD Work Phone: [facility] 2004 pneumococcal conjuga te vaccine, 7 valent Marcio Ruiz MD Work Phone: [facility] 2004 poliovirus vaccine, inactivated Marcio Ruiz MD Work Phone: [facility] 2004 diphtheria, tetanus toxoids and acellular pertussis vaccine Marcio Ruiz MD Work Phone: [facility] Work Phone: 2004 diphtheria, tetanus toxoids and acellular pertussis vaccine, 5 pertussis antigens Alisson Ross APRN.HOGSHEAD STOCK CLERK Work Phone: [facility] 2004 haemophilus influenz ae type b vaccine, HbOC conjugate Alisson Ross APRN.HOGSHEAD STOCK CLERK Work Phone: [facility] 2004 haemophilus influenz ae type b vaccine, PRP-T conjugate Marcio Ruiz MD Work Phone: [facility] 2004 hepatitis B vaccine, pediatric or pediatric/adolescent dosage Marcio Ruiz MD Work Phone: [facility] 2004 pneumococcal conjuga te vaccine, 7 valent Marcio Ruiz MD Work Phone: [facility] 2004 poliovirus vaccine, inactivated Marcio Ruiz MD Work Phone: [facility] 2004 hepatitis B vaccine, pediatric or pediatric/adolescent dosage Marcio Ruiz MD Work Phone: [facility] Payers Date Payer Category Payer Self-pay 2025 Unknown [id number] 2023 Medicaid [employer] [facility] [place] [id number] 2023-Present [phone] [place] [address] Medicaid [id number] 2018 Unknown SP/UNINSURED [employer]O F-PAY OOC 2018-Present [id number] Unknown [id number] Social History Date Type Detail Facility Start: 02-09-2023 End: 03-17-2025 Tobacco smoking status VAIS Never smoked tobacco [facility] Start: 03-12-2019 Alcohol intake Not Asked [facility] Start: 03-12-2019 End: 02-09-2023 Alcohol intake [facility] Start: 11-06-2016 Tobacco Comment non smoking househol d [facility] Start: 2004 Sex Assigned At Not on file [facility] Start: 02-09-2023 Tobacco use and exposure Smokeless tobacco non-user [facility] Start: 02-09-2023 End: 08-25-2024 Alcohol intake Current non-drinker of alcohol (finding) [facility] Start: 02-09-2023 End: 08-25-2024 Tobacco use panel [facility] National Score (1-100), lower number is lower risk 36 [facility] Start: 2004 Sex Assigned At Male [facility] Clinical Notes 02-09-2023 to 03-17-2025 Note Date & Type Note Facility 03-17-[address] [facility] 03-17-2025 Discharge summary Note Date/Time March 17, 2025 10:26pm [facility] Medical Records Department [address] [place] [address] Emergency Department Summary 03/17/25 MR#: [id number] Acct: [id number] Name: JAYLEEN MENDOZA Rep #:[id number] : 2005 19 From: Errol Sesay DO PCP: OUT OF TOWN DOCTOR Status:REG ER Location: ED HPI History of Present Illness Chief Complaint: Complaint Narrative Narrative: Patient is a 19-year-old male with no known significant past medical history whopresents to the emergency department for concern for exposure to STI. Patient states that he is exposed to chlamydia back in the end of November early December and is just now finding out about this. He states that the individual that he slept with the recently told him this. He states that he does not have any symptoms at this point in time. In the triage note he complained of ingrown hair/bump onhis scrotum which was there for 1 day back in the early summer and already popped and states that this has resolved since then. [facility] Medical History no medical history Home Medications ?Medication ?Instructions ?Recorded ?Last Taken ?Type cephalexin 500 mg capsule 500 mg PO BID 5 days #10 cap s 03/17/25 Unknown Rx Allergy/AdvReac Type Severity Reaction Status Date / Time No Known Allergies Allergy Verified 03/17/25 20:16 Surgical History no surgical history Social History Smoking Status: Never smoker ROS ROS ED ROS Narrative Constitutional: Denies any fevers, chills, headaches Abdomen: Denies abdominal pain nausea vomit diarrhea : Any painful urination, hematuria, polyuria, urethral discharge Neurological: Denies any numbness, weakness, tingling Musculoskeletal: Denies any back pain Skin: Denies any rashes or lesions EXAM Physical Exam Narrative Exam Narrative: General: Patient was lying in bed rest comfortably did not appear to be in acutedistress Head: Matted, normocephalic Eyes: PERRL bilaterally, EOMI bilaterally, no conjunctival injection noted Neck: Soft, supple, trachea midline Cardiovascular: Regular rate Extremities: +5/5 strength noted in the bilateral upper and lower extremities Neurological: Patient following commands knew that he was at [facility] the year is 2024 Skin: Warm, dry, intact no rashes or lesions noted Const Vital Signs: 03/17/25 20:16 Temperature 98.5 F Temperature Source Oral Pulse Rate 90 Respiratory Rate 18 Blood Pressure 188/106 H Blood Pressure Mean 133 Pulse Ox 98 Oxygen Delivery Method Room Air MDM MDM MDM Narrative Medical decision making narrative: Patient is a 19-year-old male who presented to the emergency department for chief complaint of being exposed to chlamydia at the end of November early December. Once again the patient is completely asymptomatic and has no urethral discharge,painful urination. Will do further testing including gonorrhea chlamydia as well as a urinalysis. Patient urinalysis was reviewed which showed 5 and leukocyte esterase 25-50 white cells with 3+ bacteria he was given Keflex here in the emergency department for concern for urinary tract infection. Gonorrhea and Chlamydia testing still pending. At 10:24 PM I called on the lab they noted that that it will be hours before thetest results return for gonorrhea and chlamydia. I discussed with the patient he would like to go home at this point time. Patient's prescription for Keflex will be sent to the pharmacy urine was sent for culture. He is advised to follow-up on the results and if this is positive he will need further antibiotics. He is encouraged return with worsening symptoms or concerns. All question concerns answered he was discharged home in stable condition. Lab Data Labs: Laboratory Results - last 24 hr 03/17/25 21:00 Urine Color Yellow Urine Clarity Sl. Cloudy Urine pH 6.[address] [place] 1.025 Urine Protein 30 H Urine Glucose (UA) Normal Urine Ketones Negative Urine Occult Blood 10 H Urine Nitrite Negative Urine Bilirubin Negative Urine Urobilinogen 1 H Ur Leukocyte Esterase 500 H Urine RBC 5-10 SEEN Urine WBC 25-50 SEEN Ur Squamous Epith Cells 0-5 SEEN Urine Bacteria 3+ Urine Mucus 0 SEEN Discharge Plan Triage Chief Complaint: Complaint ED Provider: Errol Sesay Dx/Rx/DC Orders Clinical Impression: Urinary tract infection, Exposure to STD Prescriptions: New cephalexin 500 mg capsule 500 mg PO BID 5 Days Qty: 10 0RF Primary Care Provider: Marcos Greene,Out of Referrals: [facility] ,Out of [Primary Care Provider] - Jessenia Rodriguez, AGING DEPARTMENT SUPERVISOR-C [[facility]] - Activity Restrictions/Additional Instructions: Follow-up on the results of your gonorrhea and Chlamydia testing. Take antibiotics that were sent to your pharmacy as prescribed. Follow-up on urine culture as well. Return with worsening symptoms or any other concerns Print Language: Angolan Disposition Disposition: Home, Self Care What to do if you have Problems For any increased pain, shortness of breath, bleeding, nausea or vomiting, chestpain, or any unexpected problems, contact your Primary Care Provider. Call [facility] ([phone]) or report to the closest Emergency Room. Call 911 if necessary. 03/17/252225 <Electronically signed by Errol Sesay DO> Cosigner Signature (if applicable): CC: ~ Signed [facility] Work Phone: [phone] 347-861801-24-2025 History of Present illness Narrative* Dutch Mckeon PA-C - 08/25/2024 11:03 AM EST This note was created using Inf[employer]iar[employer]. Subjective Rina Mendoza is a 19 year old male. Patient is a 27-year-old male who complains of congestion and cough that he has been experiencing for the past 2 days. Patient reports a low-grade fever and denies chills or myalgia. 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 Cough Review of Systems HENT: Positive for [...] Patient was provided with prescriptions for prednisone 20mg and Tessalon 100 mg. Patient was strongly [...] Z01.30 Dutch Mckeon PA-C documented [facility] NoteHNO ID: [id number] Author: Alisson Ross APRN.HOGSHEAD STOCK CLERK Service: ? Author Type: Nurse Practitioner Type: [...] No Screening tools reviewed and discussed with patient/[id number]-7 and Social Determinants of Health. Please see [...] age (HCC) E66.01 AST/SG (more content not included)...[facility] 02-09-2023 History of Present illness Narrative* Alisson Ross, ARASH.HOGSHEAD STOCK CLERK - 02/09/2023 9:00 AM EDT WELL VISIT PEDIATRIC 18+YRS OLD Rina is [...] No Screening tools reviewed and discussed with patient/[id number]-8 and Social Determinants of Health.Please see Patient Entered Data. SDOH: Food Insecurity: [...] masses, no rashes or lesions, circumcised, testes descendedbilaterally Extremities: Full ROM and no swelling, erythema [...] with patient, and I recommended no further interventionat this time. Rina is an 17 yr [...] (See Patient Instructions). - Parent/guardian was counseled [id number] by myself (the billing provider) for the [...] year for routine physical. documented in [facility] Instructions* Patient Instructions* Alisson Ross APRN.CNP - 02/09/2023 7:37 AM [...] drinks Go! Be healthy, inside and out! [email or web address]/5toGo Adolescent to Adult Transition Program [facility] cares about helping you and each of our adolescents and young adults make a smoothtransition to adult care. If your current doctor is a swager operator, we will work with you to decide [...] your current doctor is in family medicine, [facility] will prepare you and your family forthe transition to being an adult patient. You [...] details. If joining our practice from outside [facility], we will help you request your medical record from past doctor(s) before your first visit. We will make every effort to work with your past providers to ensure a smooth transition and experience. We are always here for you. If you have any questions or concerns, please contact your primary careteam or e-mail [email or web address] Got Transition is the federally funded national resource center on health care transition (HCT). Its aim is to improve transition from pediatric to adult health care through the use of evidence-driven strategies for health acute care physical therapist, youth, young adults, and their families. www.gottransition.org https://gottransition.org/resource/?djk-qpfmws-rfcjvbn 5 to Go!TM Healthy Kids Inside & Out 5 Eat FIVE fruits and veggies a day 4 Give and get FOUR compliments a day 3 Consume THREE calcium products a day 2 Limit media time to TWO hours a day 1 Get at least ONE hour of exercise a day 0 Consume ZERO sugar-sweetened drinks Go! Be healthy, inside and out! www.[facility].org/5toGo [facility] Diagnosis Encounter for general adult medical examination [...] for age (HCC) documented in [facility]* Diagnosis Viral illness- Primary Unspecified viral infection, in conditions classified elsewhere and of unspecified site Blood pressure check Screening for hypertension documented in this encounter [facility] noteNo assessment information availableWCincinnati Shrin[facility] Work Phone: Hospital Discharge instructionsAdditional Instructions Follow-up on the results of your gonorrhea and Chlamydia testing. Take antibiotics that were sent to your pharmacy as prescribed. Follow-up on urine culture as well. Return with worsening symptoms or any other concernsWCincinnati Shriners Hospital Work Phone: Reason for referral (narrative)No reason for referral information availableWCincinnati Shriners Hospital Work Phone: Reason for Referral Specialty Diagnoses / Procedures Referred By Jase chu Referred To Contact Dermatology Diagnoses Keloid Procedures CONSULT TO DERMATOLOGY Alisson Ross APRN.HOGSHEAD STOCK CLERK [address] [place] [address] Referral ID Status Reason Start Date Expiration Date Visits Requested Visits Authorized [id number] Ref Not Required PCP Requested Referral 02/09/2023 02/09/2024 1 1 Summary Purpose Family History No Family History Records FoundNo Family History Records Found Advance Directives No Advanced Directives Records Found Advance Directive Response Recorded Date/ Time Do you have a Healthcare Power of Cosmetic Account Coordinator? No March 17, 2025 8:27pm Chief Complaint and Reason for Visit Chief Complaint Admit Date STD TESTING March 17, 2025 8: 15pm Additional Source Comments Care Teams (unrecognized sec tion and content) Laundry Supervisor Relationship Specialty Start Date End Date Marcio Ruiz MD [address] [place], [place] [id number] PCP - General Pediatrics 07/04/16 Marcio Ruiz MD [address] [place] [id number] PCP - Payer Claims Derived PCP 06/01/17 Laundry Supervisor Relationship Specialty [place] [address] [place] [id number] PCP - General Pediatrics 10/15/21 Laundry Supervisor Relationship Specialty [place] [address] [place] [address] PCP - General Pediatrics 10/15/21 Team Status: Active Member Role/Relationship Status Dates Out of [facility] Doctor Primary Care Provider Active Team Status: Inactive Member Role/Relationship Status Dates Out of [facility] Doctor Primary Care Provider Active Start: March 17, 2025 End: March 17, 2025 Dr. Errol Sesay , Emergency Provider Active Start: March 17, 2025 End: March 17, 2025 Source Comments (unrecognize d section and content) In the event this informatio n is protected by the Federal Confidentiality of Alcohol and Drug Abuse Patient Records regulations: The Federal rules restrict any use of the information to criminally investigate or prosecute any alcohol or drug abuse patient.[facility] CenterIn the event this information is protected by the Federal Confidentiality of Alcohol and Drug Abuse Patient Records regulations: The Federal rules restrict any use of the information to criminally investigate or prosecute any alcohol or drug abuse patient.[facility] Reason for Visit (unrecogniz ed section and content) Reason Comments Well Child Specialty Diagnoses / Procedures Referred By Jase chu Referred To Contact Diagnoses Physical Procedures EST PATIENT VISIT LEVEL 1 Alisson Ross APRN.HOGSHEAD STOCK CLERK [address] [place] [address] [facility] Dept Referral ID Status Reason Start Date Expiration Date Visits Requested Visits Authorized [id number] Authorized Patient Cleared - Qualified 100% FAS 02/08/2023 05/09/2023 99 99 Reason Comments Cough Congestion. Vomiting , inability to keep food down & LLAMAS x 2-3 days; [facility] advised to have BP rechecked (unrecognized sect ion and content) No Status Records FoundNo Status Records Found INFORMATION SOURCE (unrecogn ized section and content) DATE CREATED AUTHOR 02/16/2023 [facility] DATE CREATED AUTHOR AUTHOR'S JAJA RODRIGUEZ 03/23/2025 [facility] Goals (unrecognized section and content) Goals may be documented in a n alternate section FOR RECORDS PERTAINING TO PATIENTS WHO ARE [...] BE BASED ON THE PRIMARY CLINICAL RECORDS. [employer] [facility]. provides no warranty or guarantee of the accuracy or completeness of information in this document.
--- NOTE | 2025-04-22 21:24 | EDS_ITS ---
HPI History of Present Illness Chief Complaint: Complaint Informant: patient Narrative Narrative: Patient is a 19-year-old male with no signal past medical history presenting for 1 episode of hematuria. States he is otherwise been healthy. He went to urinate and noticed that his urine was discolored and when he looked at his urine it seemed like it was red. He denies any associated dysuria. Has had some very mild suprapubic discomfort today. Denies any back pain. 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 Denies any new sexual partners or concerns for STIs. Notes he was treated about a month ago for urinary tract infection and chlamydia. He states that symptoms have resolved. He denies any testicular pain. Denies any back pain. [place] any nausea or vomiting. No other complaints or concerns at this time. PFSH PFSH Medical History no medical history Home Medications ?Medication ?Instructions ?Recorded ?Last Taken ?Type nitrofurantoin 100 mg PO Q12H 5 days #10 ca ps 04/22/25 Unknown Rx monohydrate/macrocrystals 100 mg capsule (Macrobid) Allergy/AdvReac Type Severity Reaction Status Date / Time No Known Allergies Allergy Verified 04/22/25 20:24 Family History no significant family his Surgical History no surgical history Social History Smoking Status: Current some day smoker tobacco type: cigarettes ROS ROS ED Constitutional Constitutional ED: Denies chills or fever(s) Respiratory/Chest Respiratory/Chest: Denies cough Gastrointestinal Gastrointestinal: Reports abdominal pain; Denies constipation, diarrhea, nausea or vomiting Genitourinary Genitourinary ED: Reports hematuria; Denies dysuria or urinary frequency Musculoskeletal Musculoskeletal: Denies arthralgias, back pain or myalgias Integumentary Denies rash Hematologic/Lymphatic Hematologic/Lymphatic: Denies easy bleeding or easy bruising EXAM Physical Exam Const Vital Signs: 04/22/25 20:23 04/22/25 23:05 04/22/25 23:15 Temperature 98.8 F 98.1 F Temperature Source Oral Pulse Rate 82 73 86 Respiratory Rate 16 18 16 Blood Pressure 149/94 H 157/103 H 156/99 H Blood Pressure Mean 112 121 118 Pulse Ox 100 99 97 Oxygen Delivery Method Room Air Room Air Positive well nourished and well developed General Appearance ED: well developed and NAD; Negative for pallor HEENT Reports moist mucous membranes normocephalic and atraumatic Resp normal respiratory effort Cardio regular rate and regular rhythm GI non-distended Auscultation: normoactive bowel sounds Palpation: soft and tender suprapubic Narrative: Chaperoned exam performed Circumcised penis. No penile discharge appreciated. No sores noted. Patient does have fine papules on ventral aspect of the glans penis consistent with condyloma acuminata. Back/Spine no CVA tenderness Extremity normal to inspection Neuro oriented x3 Sensorium / Orientation: alert Psych mental status grossly normal Skin General Skin Exam: Negative for jaundice or pallor MDM MDM MDM Narrative Medical decision making narrative: Patient evaluated for 1 episode of hematuria. Patient well-appearing. Differential includes idiopathic hematuria, STI, urinary tract infection/cystitis. Lower suspicion for renal colic given he does not have any associated back pain or other symptoms consistent with a kidney stone. 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 Urinalysis is obtained which does show hematuria with 10-25 red blood cells but otherwise normal. Will send off for culture and treat with Macrobid in case he does have an underlying urinary tract infection. This is not consistent with STI. Counseled that he will need to follow-up with urology. It is possible it might clear on its own but if it does not he will need further evaluation and testing. Discussed return precautions emergency room including worsening pain, inability to urinate or passing large clots of blood. He verbalized agreement understand this plan. Will be started on Macrobid empirically. Given first dose in emergency room. Discharged home in stable condition Lab Data Attestation: I reviewed the patient's lab results. Labs: Laboratory Results - last 24 hr 04/22/25 20:39 Urine Color Yellow Urine Clarity Clear Urine pH 6.0 Ur Specific [place] 1.020 Urine Protein 30 H Urine Glucose (UA) Normal Urine Ketones Negative Urine Occult Blood 150 H Urine Nitrite Negative Urine Bilirubin Negative Urine Urobilinogen Normal Ur Leukocyte Esterase Negative Urine RBC 10-25 SEEN Urine WBC 0 SEEN Ur Squamous Epith Cells 0 SEEN Urine Bacteria 0 SEEN Urine Mucus 0 SEEN Discharge Plan Triage Chief Complaint: Complaint ED Provider: Coby Lucio Dx/Rx/DC Orders Clinical Impression: Hematuria Instructions: ED Hematuria Prescriptions: New nitrofurantoin monohyd/m-cryst [Macrobid] 100 mg capsule 100 mg PO Q12H 5 Days Qty: 10 0RF Rx Instructions: must administer with a meal/food Primary Care Provider: Care Physician,No Primary Referrals: Luis Long MD [Med Staff - Active Staff, Urology] Care Physician,No Primary [Primary Care Provider, Medical] Activity Restrictions/Additional Instructions: Patient drinking plenty of fluids. If you develop back pain or severe abdominal pain please return to the emergency room. Please follow-up with urologist. You have difficulty urinating or have large clots of blood in your urine please return to the emergency room. Print Language: Danish Disposition Disposition: Home, Self Care Discharge Date/Time: 04/22/25 23:17
[2025-04-22 21:45] LABS: Color, Urine Yellow (Yellow); Glucose, Dipstick Normal (Normal); Ketone-Dipstick Negative (Negative); Leukocyte Esterase-Dipstick Negative /ul (Negative); Nitrite-Dipstick Negative (Negative); Occult Blood-Urine 150 /ul (Negative); Protein-Dipstick 30 mg/dl (Negative); Specific Gravity, Urine 1.020 (1.002-1.030); Urine Bilirubin Dipstick Negative (Negative)
[2025-04-22 21:55] LABS: Red Blood Cells-Urine 10-25 SEEN /hpf (0-5)
[2025-04-22 23:05] VITALS: BP 157/103; PULSE 73; RESP 18; O2SAT 99
[2025-04-22 23:15] VITALS: BP 156/99; PULSE 86; RESP 16; TEMP 36.7; O2SAT 97
== END 2025-04-22 23:17 | disposition home or self-care (01) ==
PROVIDERS: Emergency Provider Emergency Medicine; Visit Provider Emergency Medicine
DX: R31.9 Hematuria, unspecified (principal); F17.210 Nicotine dependence, cigarettes, uncomplicated
CPT/HCPCS: 81001; 87086; 99282